=== PATIENT | female | born 1950 | race Caucasian/White ===

== ENCOUNTER → 2016-11-23 | Outpatient (CLI) | payer MEDICARE ==
--- NOTE | 2016-11-24 10:32 | ECHOF ---
Referral Reason:C50.611 Breast CA Z01.818 Pre Chemo Exposure MEASUREMENTS -------- HEIGHT: 162.6 cm WEIGHT: 76.7 kg BP: 127/65 RVIDd: 2.7 cm (< 3.3) IVSd: 1.0 cm (0.6 - 1.1) LVIDd: 4.5 cm (3.9 - 5.3) LVPWd: 0.9 cm (0.6 - 1.1) IVSs: 1.5 cm LVIDs: 3.0 cm LVPWs: 1.3 cm LA Diam: 2.7 cm (2.7 - 3.8) LAESV Index (A-L): 13.75 ml/m Ao Diam: 3.1 cm (2.0 - 3.7) AV Cusp: 2.0 cm (1.5 - 2.6) MV EXCURSION: 14.273 mm (> 18.000) MV EF SLOPE: 21 mm/s (70 - 150) EPSS: 1.2 cm MV E Mayur: 0.64 m/s MV DecT: 217 ms MV A Mayur: 0.87 m/s MV E/A Ratio: 0.74 RAP: 5.00 mmHg RVSP: 22.84 mmHg FINDINGS -------- Sinus rhythm. This was a technically good study. The left ventricular size is normal. Left ventricular wall thickness is normal. Overall left ventricular systolic function is normal with, an EF between 60 - 65 %. The right ventricle is normal in size and function. The left atrium is normal in size. Normal LA size by volume 22+/-6 ml/m2. The right atrium is normal in size. The aortic valve is trileaflet and appears structurally normal. Mild mitral annular calcification present. Trace tricuspid regurgitation present. Right ventricular systolic pressure is normal at < 35 mmHg. Trace/mild (physiologic) pulmonic regurgitation. The aortic root size is normal. The inferior vena cava is mildly dilated. There is no pericardial effusion. CONCLUSIONS -------- 1. Sinus rhythm. 2. Mild mitral annular calcification present. 3. Trace tricuspid regurgitation present. 4. Right ventricular systolic pressure is normal at < 35 mmHg. 5. Trace/mild (physiologic) pulmonic regurgitation. 6. The aortic root size is normal. 7. The inferior vena cava is mildly dilated. 8. There is no pericardial effusion. 9. This was a technically good study. 10. The left ventricular size is normal. 11. Left ventricular wall thickness is normal. 12. Overall left ventricular systolic function is normal with, an EF between 60 - 65 %. 13. The right ventricle is normal in size and function. 14. Normal LA size by volume 22+/-6 ml/m2. 15. The right atrium is normal in size. 16. The aortic valve is trileaflet and appears structurally normal. SAFEMAKER: Mariam Thomas RDCS
== END | disposition home or self-care (01) ==
LOC: RADECHMAIN 12:37
PROVIDERS: ATTEND Internal Medicine Hematology & Oncology
DX: Z01.818 Encounter for other preprocedural examination (principal); C50.919 Malignant neoplasm of unspecified site of unspecified female breast; I08.1 Rheumatic disorders of both mitral and tricuspid valves
CPT/HCPCS: 93306

== ENCOUNTER → 2017-02-19 | Outpatient (CLI) | payer MEDICARE ==
--- NOTE | 2017-02-22 10:20 | PE ---
Nuclear medicine PET/CT HISTORY: Breast carcinoma Patient received 13.6 mCi F-18 FDG intravenously and delayed scanning performed from the skull base t hrough the mid thighs. Localization and attenuation correction CT scan was performed. Correlation to prior nuclear medicine PET/CT August Neck and chest: There is no evident adenopathy. Port-A-Cath is noted incidentally by the left jugular approach. Bilateral breast prostheses are present. Coronary artery calcifications are present. There is a right upper lobe lung mass present measuring approximately 3.1 cm in greatest dimension which i s grown in the interval from approximately 2.9 cm. SUV is 5.9 up from 4.7. An additional nodular area somewhat more inferiorly in the right upper lobe measures approximately 2 cm in greatest anterior to posterior dimension which is also increased in size, SUV only 2.7 up from 2.2. There is some nodular ity again seen in the superior segment of the right lower lobe which shows a similar appearance. No p leural or pericardial effusion. The heart is enlarged. Abdomen pelvis: Right adrenal mass shows low attenuation as on prior exam. No retroperitoneal adenopa thy or suspicious hypermetabolic uptake. Osseous structures are stable. IMPRESSION: Interval growth of right upper lobe lung masses.
== END | disposition home or self-care (01) ==
LOC: RADPETMAIN 10:20
PROVIDERS: ATTEND Internal Medicine Hematology & Oncology
DX: C50.919 Malignant neoplasm of unspecified site of unspecified female breast (principal); E11.9 Type 2 diabetes mellitus without complications; Z92.21 Personal history of antineoplastic chemotherapy
CPT/HCPCS: 78815; A9552

== ENCOUNTER → 2017-03-25 | Outpatient (CLI) | payer MEDICARE ==
--- NOTE | 2017-03-26 08:16 | ECHOF ---
Referral Reason:C50.611 Breast Cancer MEASUREMENTS -------- HEIGHT: 162.6 cm WEIGHT: 75.7 kg BP: 134/86 RVIDd: 3.3 cm (< 3.3) IVSd: 1.0 cm (0.6 - 1.1) LVIDd: 4.9 cm (3.9 - 5.3) LVPWd: 0.9 cm (0.6 - 1.1) IVSs: 1.5 cm LVIDs: 3.4 cm LVPWs: 1.4 cm Ao Diam: 3.4 cm (2.0 - 3.7) AV Cusp: 1.7 cm (1.5 - 2.6) LA Diam: 2.5 cm (2.7 - 3.8) MV EXCURSION: 14.881 mm (> 18.000) MV EF SLOPE: 96 mm/s (70 - 150) EPSS: 0.9 cm RAP: 5.00 mmHg RVSP: 19.02 mmHg FINDINGS -------- Sinus rhythm. This was a technically difficult study with suboptimal views. Pt. Has Breast inplants Overall left ventricular systolic function is normal with, an EF between 55 - 60 %. The right ventricle is normal in size and function. The left atrium is normal in size. The right atrium is normal in size. The aortic valve is trileaflet, and appears structurally normal. No aortic stenosis or regurgitation. The mitral valve leaflets are mildly thickened. No mitral regurgitation. Trace tricuspid regurgitation present. There is no evidence of pulmonary hypertension. The right ventricular systolic pressure, as measured by Doppler, is 19.02mmHg. Trace/mild (physiologic) pulmonic regurgitation. The aortic root size is normal. The inferior vena cava is mildly dilated. The pericardium is normal. There is no pericardial effusion. CONCLUSIONS -------- 1. Sinus rhythm. 2. There is no evidence of pulmonary hypertension. 3. The right ventricular systolic pressure, as measured by Doppler, is 19.02mmHg. 4. Trace/mild (physiologic) pulmonic regurgitation. 5. The aortic root size is normal. 6. The inferior vena cava is mildly dilated. 7. There is no pericardial effusion. 8. This was a technically difficult study with suboptimal views. 9. Pt. Has Breast inplants and double radical mastectomy. 10. Overall left ventricular systolic function is normal with, an EF between 55 - 60 %. 11. The left atrium is normal in size. 12. The aortic valve is trileaflet, and appears structurally normal. No aortic stenosis or regurgitation. 13. The mitral valve leaflets are mildly thickened. 14. No mitral regurgitation. 15. Trace tricuspid regurgitation present. FUR DESIGNER: Ulises Hodges RDCS
== END ==
LOC: RADECHMAIN 16:21
PROVIDERS: ATTEND Internal Medicine Hematology & Oncology
DX: I05.8 Other rheumatic mitral valve diseases (principal); C50.919 Malignant neoplasm of unspecified site of unspecified female breast; Z88.0 Allergy status to penicillin; Z88.2 Allergy status to sulfonamides
CPT/HCPCS: 93306

== ENCOUNTER → 2017-05-28 | Outpatient (CLI) | payer MEDICARE ==
--- NOTE | 2017-05-30 14:05 | PE ---
Nuclear medicine PET/CT HISTORY: C 50.611, C 50.911, cancer right breast and axilla Patient received 9 mCi F-18 FDG intravenously in delayed scanning performed from the skull base to th e mid thighs. Localization and attenuation correction CT scan was performed and correlated to prior n [facility] PET/CT 02/19/2017 Neck and chest: The right upper lobe soft tissue mass now measures approximately 3.6 cm increased fro m 3.3 cm. Hypermetabolic uptake is again noted. SUV value is 6.8. Nodular uptake in the right lower l obe shows a similar appearance, SUV 2.5. Lateral aspect of the right upper lobe also shows a similar appearance, SUV 2. No pleural or pericardial effusion. No evident mediastinal or axillary uptake. Pat ient is post bilateral breast prostheses as on prior exam. Abdomen pelvis: Uptake within the bowel is felt likely to be physiologic. No evident liver mass retro peritoneal adenopathy. Osseous structures are stable. IMPRESSION: Slight interval growth of patient's right upper lobe lung mass is suspected. Suspicious h ypermetabolic uptake is again seen within the right lung as described.
== END | disposition home or self-care (01) ==
LOC: RADPETMAIN 11:27
PROVIDERS: ATTEND Internal Medicine Hematology & Oncology
DX: C50.611 Malignant neoplasm of axillary tail of right female breast (principal); C50.911 Malignant neoplasm of unspecified site of right female breast
CPT/HCPCS: 78815; A9552

== ENCOUNTER → 2017-06-27 | Outpatient (CLI) | payer MEDICARE ==
--- NOTE | 2017-06-28 10:11 | ECHOF ---
[facility].611 [facility]AS[facility] -------- HEIGHT: 162.6 cm WEIGHT: 72.6 kg BP: 117/60 RVIDd: 3.1 cm (< 3.3) IVSd: 1.1 cm (0.6 - 1.1) LVIDd: 4.0 cm (3.9 - 5.3) LVPWd: 1.1 cm (0.6 - 1.1) IVSs: 1.5 cm LVIDs: 3.2 cm LVPWs: 1.8 cm LA Diam: 3.3 cm (2.7 - 3.8) Ao Diam: 3.3 cm (2.0 - 3.7) AV Cusp: 1.9 cm (1.5 - 2.6) MV EXCURSION: 19.197 mm (> 18.000) MV EF SLOPE: 68 mm/s (70 - 150) EPSS: 0.5 cm RAP: 5.00 mmHg RVSP: 21.00 mmHg FINDINGS -------- Sinus rhythm. This was a technically adequate study. Pt. Has Breast inplants The left ventricular size is normal. There is borderline concentric left ventricular hypertrophy. Overall left ventricular systolic function is normal with, an EF between 55 - 60 %. The right ventricle is normal in size. The left atrium is normal in size. The right atrium is normal in size. The aortic valve is trileaflet and appears structurally normal. The mitral valve is normal. Mild tricuspid regurgitation present. Right ventricular systolic pressure is normal at < 35 mmHg. Trace/mild (physiologic) pulmonic regurgitation. The aortic root size is normal. The inferior vena cava is mildly dilated. There is no pericardial effusion. CONCLUSIONS -------- 1. Sinus rhythm. 2. The aortic valve is trileaflet and appears structurally normal. 3. The mitral valve is normal. 4. Mild tricuspid regurgitation present. 5. Right ventricular systolic pressure is normal at < 35 mmHg. 6. Trace/mild (physiologic) pulmonic regurgitation. 7. The aortic root size is normal. 8. The inferior vena cava is mildly dilated. 9. There is no pericardial effusion. 10. This was a technically adequate study. 11. Pt. Has Breast inplants 12. The left ventricular size is normal. 13. There is borderline concentric left ventricular hypertrophy. 14. Overall left ventricular systolic function is normal with, an EF between 55 - 60 %. 15. The right ventricle is normal in size. 16. The left atrium is normal in size. 17. The right atrium is normal in size. EXECUTIVE ACCOUNT MANAGER: Mariam Thomas RDCS
== END | disposition home or self-care (01) ==
LOC: RADECHMAIN 14:58
PROVIDERS: ATTEND Internal Medicine Hematology & Oncology
DX: Z01.810 Encounter for preprocedural cardiovascular examination (principal); I07.1 Rheumatic tricuspid insufficiency; C50.611 Malignant neoplasm of axillary tail of right female breast; Z98.82 Breast implant status
CPT/HCPCS: 93306

== ENCOUNTER 2017-10-24 12:19 | Emergency (ER) | payer MEDICARE ==
[2017-10-24] MEDS ORDERED: SODIUM CHLORIDE 0.9% 1,000 ML IV ONE ×2 (13:49)
--- NOTE | 2017-10-24 13:58 | ED ---
Fall HPI - General Chief Complaint: Fall Stated Complaint: Fall/Dizziness Time Seen by Provider: 10/24/17 13:40 Source: patient Mode of arrival: wheelchair - History of Present Illness Initial Comments: This 59-year-old white female presents pulling of a fall. She fell yesterday. She was going down the steps. She apparently missed the last step, fell, and hit her left occiput. She is unsure if she passed out at that time. She states that she was doing well afterwards. She then woke up this morning and stood up, felt dizzy, and fell again. She thinks she hit her head again. She does not think that she lost consciousness this time. She fell on her left side and states that her left side feels sore. She denies any other injuries. She states that she has been eating and drinking fairly well and does not feel dehydrated. She currently is on oral chemotherapy for breast cancer with lung metastases. She did take an aspirin this morning but denies taking any other blood thinners. She does complain of a slight dizziness which she describes more of a lightheadedness or unsteadiness but denies any spinning or vertigo type of sensations. She denies any other complaints or modifying factors. - Related Data Home Medications Medication Instructions Recorded Confirmed Aspirin 81 mg PO DAILY 09/10/14 10/24/17 Calcium Carbonate/Vitamin D3 1 tab PO DAILY 09/10/14 10/24/17 [Calcium 600-Vit D3 400 Tablet] Insulin Aspart [NovoLOG Flexpen] 5 unit SQ AC-BRKFST 09/10/14 10/24/17 Insulin Aspart [NovoLOG Flexpen] 8 unit SQ AC-LUNCH 09/10/14 10/24/17 Insulin Aspart [NovoLOG Flexpen] 8 unit SQ AC-SUPPER 09/10/14 10/24/17 Levothyroxine Sodium [Synthroid] 100 mcg PO DAILY 09/10/14 10/24/17 Multivitamins, Thera [Multivitamin 1 tab PO DAILY 09/10/14 10/24/17 (formulary)] [place]-3S/Dha/Epa/Fish Oil [[place]-3 1 cap PO DAILY 09/10/14 10/24/17 Fish Oil 1,000 mg Sfgl] Omeprazole [PriLOSEC] 20 mg PO DAILY 09/10/14 10/24/17 amLODIPine [Norvasc] 10 mg PO DAILY 09/10/14 10/24/17 Biotin Forte 1 tab PO DAILY 10/24/17 10/24/17 Canagliflozin [Invokana] 100 mg PO DAILY 10/24/17 10/24/17 Capecitabine [Xeloda] 1,000 mg PO DIRECTED 10/24/17 10/24/17 Cholecalciferol [Vitamin D3] 1,000 unit PO DAILY 10/24/17 10/24/17 Ferrous Gluconate 324 mg PO DAILY 10/24/17 10/24/17 Insulin Glargine,Hum.rec.anlog 22 unit SQ HS 10/24/17 10/24/17 [Lantus Solostar] Loperamide [Imodium] 2 mg PO QID PRN 10/24/17 10/24/17 Naproxen Sodium [Aleve] 440 - 660 mg PO DAILY PRN 10/24/17 10/24/17 Prochlorperazine [Compazine] 10 mg PO Q6H PRN 10/24/17 10/24/17 Sertraline [Zoloft] 100 mg PO DAILY 10/24/17 10/24/17 metFORMIN HCL [Glucophage] 500 mg PO BID 10/24/17 10/24/17 Allergies Allergy/AdvReac Type Severity Reaction Status Date / Time adhesive Allergy Itching Verified 10/24/17 14:06 Penicillins Allergy Rash/Hives Verified 10/24/17 14:06 Sulfa (Sulfonamide Allergy Rash/Hives Verified 10/24/17 14:06 Antibiotics) guaifenesin AdvReac Nausea & Verified 10/24/17 14:06 Vomiting Review of Systems ROS Statement: Those systems with pertinent positive or pertinent negative responses have been documented in the HPI. ROS Other: All systems not noted in ROS Statement are negative. Past Medical History Past Medical History: Cancer, Diabetes Mellitus, Eye Disorder, GERD/Reflux, Hyperlipidemia, Hypertension, Osteoarthritis (OA), Thyroid Disorder Additional Past Medical History / Comment(s): bilateral breast cancer, depression, cervical spine degenerative disc disease, CURRENTLY ON CHEMOTHERAPY R/T "SPOTS ON LUNGS" Q 3 WEEKS, BEGINNING CATARACTS History of Any Multi-Drug Resistant Organisms: None Reported Past Surgical History: Section, Cholecystectomy, Orthopedic Surgery Additional Past Surgical History / Comment(s): Bilateral mastectomies 2005 and 2011, left shoulder arthroscopy,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 PORT A CATHX2 CURRENTLY LEFT CHEST, BX OF LYMPH NODES Past Anesthesia/Blood Transfusion Reactions: Motion Sickness, Postoperative Nausea & Vomiting (PONV) Past Psychological History: Depression Smoking Status: Never smoker Past Alcohol Use History: None Reported Past Drug Use History: None Reported - Past Family History Father Family Medical History: Cancer, Hypertension, Myocardial Infarction ([place]) Additional Family Medical History / Comment(s): AT AGE 85 Mother Family Medical History: Neurologic Disorder Additional Family Medical History / Comment(s): AT AGE 80 ANUERYSM Sister(s) Family Medical History: Cancer General Exam - General Exam Comments Initial Comments: GENERAL: The patient is well nourished and well hydrated. VITAL SIGNS: Heart rate, blood pressure, respiratory rate reviewed as recorded in nurse's notes. EYES: Pupils are round and reactive. Extraocular movements are intact. No conjunctival / lid redness or swelling. ENT: No external evidence of injury, swelling, or ecchymosis. Airway is patent. Throat is clear. There is some slight tenderness to the left occipital area. NECK: There is minimal tenderness noted to the left paraspinal musculature. No swelling or evidence of injury. No subcutaneous emphysema. Trachea is midline. No thyroid mass. HEART: Regular rate and rhythm. Good peripheral pulses. LUNGS/CHEST: Breath sounds clear and equal bilaterally. No rales, rhonchi, or wheezes. No ecchymosis, subcutaneous emphysema, or tenderness. ABDOMEN: Abdomen soft without tenderness. No palpable masses or organomegaly. No peritoneal signs. No abdominal wall swelling or ecchymosis. EXTREMITIES: No extremity tenderness. Normal muscle tone and function. No thoracolumbar tenderness. NEUROLOGIC: Sensation is grossly intact. Cranial nerve exam reveals face is symmetrical, tongue is midline, speech is clear. SKIN: No abrasions or ecchymosis is noted. No induration or masses noted. PSYCHIATRIC: Alert and oriented. Appropriate behavior and judgment. Limitations: no limitations Course Vital Signs 10/24/17 10/24/17 12:22 15:07 Temperature 98.1 F Pulse Rate 94 Pulse Rate [ 87 Sitting] Pulse Rate [ 94 Standing] Pulse Rate [ 84 Supine] Respiratory 20 Rate Blood Pressure 159/72 Blood Pressure 159/85 [Sitting] Blood Pressure 158/93 [Standing] Blood Pressure 146/75 [Supine] O2 Sat by Pulse 99 Oximetry Medical Decision Making - Medical Decision Making The patient was seen and examined. All diagnostics were reviewed. The patient did receive IV fluid hydration. Orthostatics are ordered and are normal. The laboratories unremarkable. The patient did have a computed tomography scan of the neck which showed degenerative changes but no fractures. The computed tomography scan of the brain does not show any acute process but does show some vasogenic edema in one area which is potentially worrisome for metastases among other things. The patient also had an EKG which shows a normal sinus rhythm at a rate of 79. There is no acute ST-T wave changes identified. The AR intervals 152, QRS duration is 88, and the QTc interval is 456. The patient was informed of this abnormal brain lesion. She states that she has never been informed previously of any brain metastases. It is felt that this certainly would be in the differential diagnosis at this time. The case is discussed with Dr. Barber for Dr. Montez and she feels as though she is stable for discharge home with close follow-up. The patient has an appointment with Dr. Montez tomorrow. She likely can have the MRI set up through Dr. Montez's office tomorrow. Dr. Barber also wants her to follow-up with her oncologist within the week and patient is informed of this as well. Fall precaution instructions were discussed and ultimately detail with patient and . Adequate hydration was also discussed. It is felt as though she is stable for discharge and leaves in no distress. - Lab Data Result diagrams: 10/24/17 14:23 10/24/17 14:23 Lab Results 10/24/17 10/24/17 10/24/17 Range/Units 14:23 14:23 14:23 WBC 7.7 (3.8-10.6) k/uL RBC 3.99 (3.80-5.40) m/uL Hgb 12.1 (11.4-16.0) gm/dL Hct 38.6 (34.0-46.0) % MCV 96.7 (80.0-100.0) fL MCH 30.4 (25.0-35.0) pg MCHC 31.4 (31.0-37.0) g/dL RDW 21.9 H (11.5-15.5) % Plt Count 133 L (150-450) k/uL Neutrophils % 84 % Lymphocytes % 8 % Monocytes % 6 % Eosinophils % 0 % Basophils % 0 % Neutrophils # 6.4 (1.3-7.7) k/uL Lymphocytes # 0.6 L (1.0-4.8) k/uL Monocytes # 0.5 (0-1.0) k/uL Eosinophils # 0.0 (0-0.7) k/uL Basophils # 0.0 (0-0.2) k/uL Hypochromasia Slight Anisocytosis Moderate Macrocytosis Moderate PT 9.5 (9.0-12.0) sec INR 1.0 (<1.2) APTT 22.0 (22.0-30.0) sec Sodium 140 (137-145) mmol/L Potassium 4.1 (3.5-5.1) mmol/L Chloride 105 (98-107) mmol/L Carbon Dioxide 23 (22-30) mmol/L Anion Gap 12 mmol/L BUN 13 (7-17) mg/dL Creatinine 0.55 (0.52-1.04) mg/dL Est GFR (MDRD) Af Amer >60 (>60 ml/min/1.73 sqM) Est GFR (MDRD) Non-Af >60 (>60 ml/min/1.73 sqM) Glucose 139 H (74-99) mg/dL POC Glucose (mg/dL) (75-99) mg/dL POC Glu Compressor Technician ID Calcium 9.7 (8.4-10.2) mg/dL Total Bilirubin 0.8 (0.2-1.3) mg/dL AST 40 H (14-36) U/L ALT 43 (9-52) U/L Alkaline Phosphatase 71 (38-126) U/L Total Protein 6.7 (6.3-8.2) g/dL Albumin 4.2 (3.5-5.0) g/dL Urine Color Urine Appearance (Clear) Urine pH (5.0-8.0) Ur Specific Harper (1.001-1.035) Urine Protein (Negative) Urine Glucose (UA) (Negative) Urine Ketones (Negative) Urine Blood (Negative) Urine Nitrite (Negative) Urine Bilirubin (Negative) Urine Urobilinogen (<2.0) mg/dL Ur Leukocyte Esterase (Negative) 10/24/17 10/24/17 Range/Units 14:23 14:28 WBC (3.8-10.6) k/uL RBC (3.80-5.40) m/uL Hgb (11.4-16.0) gm/dL Hct (34.0-46.0) % MCV (80.0-100.0) fL MCH (25.0-35.0) pg MCHC (31.0-37.0) g/dL RDW (11.5-15.5) % Plt Count (150-450) k/uL Neutrophils % % Lymphocytes % % Monocytes % % Eosinophils % % Basophils % % Neutrophils # (1.3-7.7) k/uL Lymphocytes # (1.0-4.8) k/uL Monocytes # (0-1.0) k/uL Eosinophils # (0-0.7) k/uL Basophils # (0-0.2) k/uL Hypochromasia Anisocytosis Macrocytosis PT (9.0-12.0) sec INR (<1.2) APTT (22.0-30.0) sec Sodium (137-145) mmol/L Potassium (3.5-5.1) mmol/L Chloride (98-107) mmol/L Carbon Dioxide (22-30) mmol/L Anion Gap mmol/L BUN (7-17) mg/dL Creatinine (0.52-1.04) mg/dL Est GFR (MDRD) Af Amer (>60 ml/min/1.73 sqM) Est GFR (MDRD) Non-Af (>60 ml/min/1.73 sqM) Glucose (74-99) mg/dL POC Glucose (mg/dL) 130 H (75-99) mg/dL POC Glu Compressor Technician ID Petitpren, Gretel Calcium (8.4-10.2) mg/dL Total Bilirubin (0.2-1.3) mg/dL AST (14-36) U/L ALT (9-52) U/L Alkaline Phosphatase (38-126) U/L Total Protein (6.3-8.2) g/dL Albumin (3.5-5.0) g/dL Urine Color Light Yellow Urine Appearance Clear (Clear) Urine pH 7.5 (5.0-8.0) Ur Specific Harper 1.005 (1.001-1.035) Urine Protein Negative (Negative) Urine Glucose (UA) 4+ H (Negative) Urine Ketones Trace H (Negative) Urine Blood Negative (Negative) Urine Nitrite Negative (Negative) Urine Bilirubin Negative (Negative) Urine Urobilinogen <2.0 (<2.0) mg/dL Ur Leukocyte Esterase Negative (Negative) Disposition Clinical Impression: Fall, Head injury, Hypertension, Brain lesion, Dizziness, Breast cancer, Lung metastases Disposition: HOME SELF-CARE Condition: Fair Instructions: Fall Prevention for Older Adults (ED), Head Injury (ED), Hypertension (ED), Dizziness (ED) Referrals: Clover Montez MD [Primary Care Provider] - 10/25/17 Time of Disposition: 16:05
[2017-10-24 14:34] LABS: Glucose,Whole Blood 130 mg/dL (75-99)
[2017-10-24 14:44] LABS: Appearance,Urine Clear (Clear); Bilirubin,Urine Negative (Negative); Blood,Urine Negative (Negative); Color,Urine Light Yellow; Glucose,Urine (UA) 4+ (Negative); Ketones,Urine Trace (Negative); Leukocyte Esterase,Urine Negative (Negative); Nitrite,Urine Negative (Negative); PH, Urine 7.5 (5.0-8.0); Protein,Urine Negative (Negative); Specific Gravity,Urine 1.005 (1.001-1.035); Urobilinogen,Urine <2.0 mg/dL (<2.0)
[2017-10-24 14:45] LABS: Anisocytosis Moderate; Basophils % (A) 0 %; Eosinophils % (A) 0 %; HCT 38.6 % (34.0-46.0); HGB 12.1 gm/dL (11.4-16.0); Hypochromasia Slight; Lymphocytes # (A) 0.6 k/uL (1.0-4.8); Lymphocytes % (A) 8 %; MCH 30.4 pg (25.0-35.0); MCHC 31.4 g/dL (31.0-37.0); MCV 96.7 fL (80.0-100.0); Macrocytosis Moderate; Mean Platelet Volume 7.4; Monocytes # (A) 0.5 k/uL (0-1.0); Monocytes % (A) 6 %; Neutrophils # (A) 6.4 k/uL (1.3-7.7); Neutrophils % (A) 84 %; Platelet Count 133 k/uL (150-450); RBC 3.99 m/uL (3.80-5.40); RDW 21.9 % (11.5-15.5); WBC 7.7 k/uL (3.8-10.6)
[2017-10-24 14:48] LABS: Prothrombin Time 9.5 sec (9.0-12.0)
[2017-10-24 14:49] LABS: ALT 43 U/L (9-52); AST 40 U/L (14-36); Albumin 4.2 g/dL (3.5-5.0); Alkaline Phosphatase 71 U/L (38-126); Anion Gap 12 mmol/L; Blood Urea Nitrogen 13 mg/dL (7-17); Calcium 9.7 mg/dL (8.4-10.2); Carbon Dioxide 23 mmol/L (22-30); Chloride 105 mmol/L (98-107); Glucose 139 mg/dL (74-99); Potassium 4.1 mmol/L (3.5-5.1); Sodium 140 mmol/L (137-145); Total Bilirubin 0.8 mg/dL (0.2-1.3); Total Protein 6.7 g/dL (6.3-8.2)
--- NOTE | 2017-10-24 15:07 | CT ---
EXAMINATION TYPE: CT brain brigitteine rojas con DATE OF EXAM: 10/24/2017 COMPARISON: NONE HISTORY: Fall with dizziness. CT DLP: 1641 mGycm Automated exposure control for dose reduction was used. TECHNIQUE: CT scan of the head and cervical spine are performed without contrast. FINDINGS: There is no acute intracranial hemorrhage, mass effect, or midline shift identified. Mild generalized degenerative change. Faint area of low attenuation within the cerebellum may been the ba sis of previous ischemia. Recommend follow-up MRI given the patient's history of malignancy as vasoge cydney edema and occult mass not excluded. Cervical spine is visualized in its entirety from C1 through upper thoracic levels and demonstrates s atisfactory alignment without evidence of acute fracture or dislocation. Prevertebral soft tissue ap pears within normal limits. The C1-C2 articulation is unremarkable. Apical pleural thickening or ma ss in the right upper lobe noted. Multilevel degenerative disc disease with severe changes at C5-6 an d C6-C7. Multilevel facet arthropathy. Canal stenosis at C5-C6 or C6-C7 is suggested. Catheter within the left-sided venous system incidentally noted IMPRESSION: 1. There is no acute fracture or dislocation evident in the cervical spine. Multilevel severe degener ative disc disease with canal stenosis C5-6 and C6-C7. 2. No acute intracranial hemorrhage, mass effect, or midline shift is seen. Abnormal attenuation in t he cerebellum greater on the left may represent remote ischemia however, vasogenic edema and occult n eoplasm in the differential diagnosis recommend follow-up MRI to exclude metastases.
[2017-10-24 16:19] VITALS: BP 126/59; PULSE 83; RESP 18; TEMP 98.2
[2017-10-24 20:34] LABS: Hemoglobin A1C 6.6 % (4.0-6.0)
== END 2017-10-24 16:19 | disposition home or self-care (01) ==
LOC: EC 12:19
DX: S09.90XA Unspecified injury of head, initial encounter (principal); I10 Essential (primary) hypertension; R42 Dizziness and giddiness; C50.911 Malignant neoplasm of unspecified site of right female breast; C50.912 Malignant neoplasm of unspecified site of left female breast; G93.9 Disorder of brain, unspecified; C78.00 Secondary malignant neoplasm of unspecified lung; E11.9 Type 2 diabetes mellitus without complications; K21.9 Gastro-esophageal reflux disease without esophagitis; E78.5 Hyperlipidemia, unspecified; E07.9 Disorder of thyroid, unspecified; F32.9 Major depressive disorder, single episode, unspecified; Z98.890 Other specified postprocedural states; Z79.4 Long term (current) use of insulin; Z79.82 Long term (current) use of aspirin; Z79.899 Other long term (current) drug therapy; Z88.0 Allergy status to penicillin; Z88.2 Allergy status to sulfonamides; Z88.8 Allergy status to other drugs, medicaments and biological substances; Z91.048 Other nonmedicinal substance allergy status; W10.9XXA Fall (on) (from) unspecified stairs and steps, initial encounter
CPT/HCPCS: 36415; 70450; 72125; 80053; 81003; 83036; 85025; 85610; 85730; 93005; 96360; 96361; 99284

== ENCOUNTER → 2017-11-02 | Outpatient (CLI) | payer MEDICARE ==
--- NOTE | 2017-11-02 13:53 | MR ---
EXAMINATION TYPE: MR brain wo/w con DATE OF EXAM: 11/02/2017 COMPARISON: CT brain dated 10/24/2017 and PET/CT dated 05/28/2017 HISTORY: Breast ca, Chemo exposure, fell hit head TECHNIQUE: Multiplanar, multisequence images of the brain and brainstem is performed without and with IV contras t, utilizing 7.5 mL intravenous Gadavist . FINDINGS: Diffusion weighted images demonstrate no evidence of a recent infarct or other diffusion ab normality. There is a T2/IR predominantly isointense and T1 hypointense intra-axial medial left cerebellar hemis phere mass that has extended into the cerebellar vermis and crosses midline into the right hemisphere creating left greater than right vasogenic edema. This mass enhances heterogeneously with more centr ally avid enhancement measuring 2.1 x 1.9 x 2.0 cm on postcontrast T1 fat sat axial image 9 and sagit rashmi image 68. Other scattered foci of T2/FLAIR hyperintensity throughout the periventricular and subcortical white matter demonstrate no evidence of enhancement and are most compatible with sequela of microangiopathy . Leptomeningeal enhancement is smooth and regular. There is no extra-axial fluid collection. The ve ntricular system and cisternal spaces are normal in size and appearance. The brain volume is age oscar ropriate. The craniocervical junction appears within normal limits. The dural venous sinuses appear patent. Th e visualized sinuses are clear and the globes are intact. IMPRESSION: 1. Heterogeneously enhancing 2.1 cm left cerebellar intra-axial mass with surrounding vasogenic edema . Metastasis is a primary consideration in this patient with history of metastatic breast carcinoma, worsening within the right upper lobe on the PET/CT of 05/28/2017. 2. Mild burden nonspecific white matter change, likely on the basis of chronic microangiopathy.
--- NOTE | 2017-11-03 10:14 | ECHOF ---
Referral Reason:C50.611 Breast ca, Z01.818 Chemo exposure MEASUREMENTS -------- HEIGHT: 163.8 cm WEIGHT: 76.7 kg BP: 146/70 RVIDd: 3.1 cm (< 3.3) IVSd: 1.1 cm (0.6 - 1.1) LVIDd: 4.9 cm (3.9 - 5.3) LVPWd: 0.9 cm (0.6 - 1.1) IVSs: 1.5 cm LVIDs: 3.0 cm LVPWs: 1.5 cm LA Diam: 3.3 cm (2.7 - 3.8) LAESV Index (A-L): 29.50 ml/m Ao Diam: 3.0 cm (2.0 - 3.7) AV Cusp: 2.0 cm (1.5 - 2.6) EPSS: 1.4 cm MV E Mayur: 0.73 m/s MV DecT: 205 ms MV A Mayur: 1.13 m/s MV E/A Ratio: 0.64 RAP: 5.00 mmHg RVSP: 32.32 mmHg MV EF SLOPE: 93.21 mm/s (70 - 150) MV EXCURSION: 1.82 cm (> 18.000) FINDINGS -------- Sinus rhythm. This was a technically good study. The left ventricular size is normal. There is borderline concentric left ventricular hypertrophy. Overall left ventricular systolic function is normal with, an EF between 55 - 60 %. The right ventricle is normal in size. LA is midly dilated 29-33ml/m2. The right atrium is normal in size. The aortic valve is trileaflet and appears structurally normal. There is trace mitral regurgitation. Mild tricuspid regurgitation present. Right ventricular systolic pressure is normal at < 35 mmHg. Trace/mild (physiologic) pulmonic regurgitation. The aortic root size is normal. The inferior vena cava is mildly dilated. There is no pericardial effusion. CONCLUSIONS -------- 1. Sinus rhythm. 2. This was a technically good study. 3. The left ventricular size is normal. 4. There is borderline concentric left ventricular hypertrophy. 5. Overall left ventricular systolic function is normal with, an EF between 55 - 60 %. 6. The right ventricle is normal in size. 7. LA is midly dilated 29-33ml/m2. 8. The right atrium is normal in size. 9. The aortic valve is trileaflet and appears structurally normal. 10. There is trace mitral regurgitation. 11. Mild tricuspid regurgitation present. 12. Right ventricular systolic pressure is normal at < 35 mmHg. 13. Trace/mild (physiologic) pulmonic regurgitation. 14. The aortic root size is normal. 15. The inferior vena cava is mildly dilated. 16. There is no pericardial effusion. PROFILE GRINDER: EMILY Bowers
== END | disposition home or self-care (01) ==
LOC: RADECHMAIN 11:20
PROVIDERS: ATTEND Internal Medicine Hematology & Oncology
DX: G93.89 Other specified disorders of brain (principal); R60.0 Localized edema; R90.82 White matter disease, unspecified; I08.8 Other rheumatic multiple valve diseases; C50.611 Malignant neoplasm of axillary tail of right female breast; Z01.818 Encounter for other preprocedural examination
CPT/HCPCS: 93306; 70553; A9581

== ENCOUNTER → 2017-11-19 | Outpatient (CLI) | payer MEDICARE ==
--- NOTE | 2017-11-20 16:42 | PE ---
EXAMINATION TYPE: PET CT fusion skull to thigh DATE OF EXAM: 11/19/2017 COMPARISON: NONE Prior PET/CT: 05/28/2017 HISTORY: Breast cancer TECHNIQUE: Following the intravenous administration of 14.4 mCi of F-18 FDG, whole body images are p erformed from the skull base to the midthigh. Images are reviewed on the computer in the coronal, ax ial, and sagittal planes. Reconstructed rotating images are created on independent workstation and r eviewed on the computer. A localization and attenuation correction CT is performed in conjunction w ith the PET scan. DLP: 417.16 mGycm SCAN: Subsequent scan Blood glucose: 125 mg/dL Average Mediastinum SUV: 1.78 Average Liver SUV: 2.55 FINDINGS: NECK: No abnormal uptake THORAX: The large mass in the posterior right apex has elevated SUV of 4.86. Image 67. This measures 3.2 x 2.0 cm. There are couple of smaller daughter masses lateral which have less intense radiotracer accumulation. Maximum SUV value is 2.23. No suspicious mediastinal or axillary uptake. There is some density within the mid posterior right lung field without abnormal uptake. ABDOMEN: No abnormal uptake PELVIS: No abnormal uptake OSSEOUS STRUCTURES: No abnormal uptake LOCALIZATION CT: Hiatal hernia is present. Some coronary artery calcification is present. The ascendi ng thoracic aorta at the level of main pulmonary artery is 4.1 cm. The main pulmonary artery the bifu rcation is 2.9 cm. Right adrenal gland is thickened with a low-density structure measuring 2.0 cm tra nsverse and -4 Hounsfield units. No abnormal uptake is present. There is some increased density in the subcutaneous tissues over the anterior upper pelvis bilaterally. COMPARISON: Smaller area posterior right lung 2.36 previously larger area posterior right lung 3.86 p reviously. Previous larger lung mass measuring 3.4 x 2.1 cm and has diminished slightly from the prio r study. The SUV value has increased from 3.86 to 4.86. The additional posterior daughter masses late ral have diminished from SUV 2.36 to 2.23. The mass size however is increased from 1.3 to 1.7. IMPRESSION: 1. The largest on the posterior left lung mass has diminished in size and SUV discussed above. 2. There are at least 2 adjacent masses to the larger mass. These have increased in size although sli ghtly diminished in SUV value. 3. Posterior right lung nodular densities do not have abnormal increased uptake and appears stable.
== END | disposition home or self-care (01) ==
LOC: RADPETMAIN 11:28
PROVIDERS: ATTEND Internal Medicine Hematology & Oncology
DX: C50.611 Malignant neoplasm of axillary tail of right female breast (principal)
CPT/HCPCS: 78815; A9552

== ENCOUNTER → 2018-01-16 | Outpatient (CLI) | payer MEDICARE ==
--- NOTE | 2018-01-16 22:44 | MR ---
EXAMINATION TYPE: MR brain wo/w con DATE OF EXAM: 01/16/2018 COMPARISON: 11/02/2017 HISTORY: Secondary malignant neoplasm of brain CONTRAST: Performed utilizing 7.5 mL intravenous Gadavist gadolinium contrast. TECHNIQUE: Multiplanar, multiecho imaging on a 3.0 Shanell magnet is performed through the brain. Stud y is performed within 24 hours of arrival to the hospital. The craniovertebral junction is normal. The pituitary is normal. Diffusion-weighted imaging is performed. No abnormal hyperintensity is present to suggest an acute i ntracranial infarct or acute ischemic change. There are multiple punctate hyperintensities scattered to the bilateral centrum semiovale as well as adjacent to the ventricles. Ventricles and sulci are appropriate for the patient age. There is an enhancing mass best visualized on the post contrast T1-weighted images in the posterior m edial left cerebellum. Mild white matter changes are evident in the FLAIR images in this region. This currently measures 1.3 x 1.2 x 1.1 cm. This is significantly diminished in size from 11/02/2017. Prev ious measurements 2.1 x 1.9 x 2.0 cm. IMPRESSIONS: 1. Significantly diminished size of an enhancing lesion within the medial left cerebellum near the mi dline. Vasogenic edema has diminished over the interval. 2. Stable chronic appearing periventricular white matter ischemic type changes
== END | disposition home or self-care (01) ==
LOC: RADMRIMAIN 11:03
PROVIDERS: ATTEND Radiology Radiation Oncology
DX: C79.31 Secondary malignant neoplasm of brain (principal)
CPT/HCPCS: 70553; A9581

== ENCOUNTER → 2018-02-07 | Outpatient (CLI) | payer MEDICARE ==
--- NOTE | 2018-02-08 10:47 | ECHOF ---
Referral Reason:C50.611 Breast ca,Z01.818 prechemo MEASUREMENTS -------- HEIGHT: 162.6 cm WEIGHT: 79.4 kg BP: 119/59 RVIDd: 2.8 cm (< 3.3) IVSd: 1.1 cm (0.6 - 1.1) LVIDd: 3.7 cm (3.9 - 5.3) LVPWd: 1.2 cm (0.6 - 1.1) IVSs: 1.3 cm LVIDs: 2.9 cm LVPWs: 1.6 cm LA Diam: 2.9 cm (2.7 - 3.8) LAESV Index (A-L): 25.92 ml/m Ao Diam: 3.0 cm (2.0 - 3.7) AV Cusp: 2.1 cm (1.5 - 2.6) MV EXCURSION: 14.100 mm (> 18.000) MV EF SLOPE: 72 mm/s (70 - 150) EPSS: 0.5 cm MV E Mayur: 0.86 m/s MV DecT: 184 ms MV A Mayur: 0.99 m/s MV E/A Ratio: 0.87 RAP: 5.00 mmHg RVSP: 30.70 mmHg FINDINGS -------- Sinus rhythm. This was a technically adequate study. The left ventricular size is normal. There is borderline concentric left ventricular hypertrophy. Overall left ventricular systolic function is normal with, an EF between 55 - 60 %. The right ventricle is normal in size. Normal LA size by volume 22+/-6 ml/m2. The right atrium is normal in size. There is mild aortic valve sclerosis. Mild mitral annular calcification present. Mild tricuspid regurgitation present. Right ventricular systolic pressure is normal at < 35 mmHg. Trace/mild (physiologic) pulmonic regurgitation. The aortic root size is normal. Normal inferior vena cava with normal inspiratory collapse consistent with estimated right atrial pre ssure of 5 mmHg. The inferior vena cava is mildly dilated. CONCLUSIONS -------- 1. Sinus rhythm. 2. This was a technically adequate study. 3. The left ventricular size is normal. 4. There is borderline concentric left ventricular hypertrophy. 5. Overall left ventricular systolic function is normal with, an EF between 55 - 60 %. 6. The right ventricle is normal in size. 7. Normal LA size by volume 22+/-6 ml/m2. 8. The right atrium is normal in size. 9. There is mild aortic valve sclerosis. 10. Mild mitral annular calcification present. 11. Mild tricuspid regurgitation present. 12. Right ventricular systolic pressure is normal at < 35 mmHg. 13. Trace/mild (physiologic) pulmonic regurgitation. 14. The aortic root size is normal. 15. Normal inferior vena cava with normal inspiratory collapse consistent with estimated right atrial pressure of 5 mmHg. 16. The inferior vena cava is mildly dilated. TAPE CONTROL SKIN OR SPAR MILL OPERATOR: Ulises Wilkinson RDCS
== END | disposition home or self-care (01) ==
LOC: RADECHMAIN 12:58
PROVIDERS: ATTEND Internal Medicine Hematology & Oncology
DX: I08.3 Combined rheumatic disorders of mitral, aortic and tricuspid valves (principal); C50.611 Malignant neoplasm of axillary tail of right female breast; I99.8 Other disorder of circulatory system; Z01.818 Encounter for other preprocedural examination
CPT/HCPCS: 93306

== ENCOUNTER → 2018-03-17 | Outpatient (CLI) | payer MEDICARE ==
--- NOTE | 2018-03-17 13:14 | MR ---
EXAMINATION TYPE: MR brain wo/w con DATE OF EXAM: 03/17/2018 COMPARISON: Both recent MRI brain January 16, 2018 and older studies HISTORY: Secondary malignant neoplasm of brain, metastatic breast cancer. TECHNIQUE: Multiplanar, multisequence images of the brain and brainstem is performed without and with IV contras t, utilizing 7.5 mL intravenous Gadavist . FINDINGS: Diffusion weighted images demonstrate no evidence of a recent infarct or other diffusion ab normality. There is no worrisome extra-axial fluid collection. The ventricular system and cisternal spaces are normal in size and appearance. The brain volume is age appropriate. There are persistent scattered foci of T2 hyperintensity seen throughout the deep and periventricular white matter. Lesio ns are nonspecific in appearance and distribution but most likely on basis of product of chronic smal l vessel ischemic change in patient of this age. No significant change from prior. Midline structures demonstrate normal morphology. The craniocervical junction appears within normal limits. Post contrast images demonstrate redemonstrate persistent left medial cerebellar enhancing lesion dim inished in size from prior study measuring 10 x 9 mm axial image 23 x 8 mm craniocaudal dimension on sagittal image 38 versus 13 x 11 x 11 mm on most recent prior study. No new suspicious enhancing lesi ons are clearly identified. The dural venous sinuses appear patent. Prominent right-sided arachnoid granulation redemonstrated ax ial image 29. The visualized sinuses are clear and the globes are intact. IMPRESSION: Continued interval positive treatment response in medial left cerebellar lesion. No new l esions are evident.
== END | disposition home or self-care (01) ==
LOC: RADMRIMAIN 12:12
PROVIDERS: ATTEND Radiology Radiation Oncology
DX: C79.31 Secondary malignant neoplasm of brain (principal)
CPT/HCPCS: 70553; A9581

== ENCOUNTER → 2018-05-30 | Outpatient (CLI) | payer MEDICARE ==
--- NOTE | 2018-06-09 13:36 | ECHOF ---
Referral Reason:C50.611 Breast Cancer, Chemo Z01.818 MEASUREMENTS -------- HEIGHT: 165.1 cm WEIGHT: 74.4 kg BP: RVIDd: 3.2 cm (< 3.3) IVSd: 1.1 cm (0.6 - 1.1) LVIDd: 4.8 cm (3.9 - 5.3) LVPWd: 1.1 cm (0.6 - 1.1) IVSs: 1.4 cm LVIDs: 3.4 cm LVPWs: 1.4 cm LAESV Index (A-L): 26.69 ml/m Ao Diam: 3.2 cm (2.0 - 3.7) AV Cusp: 1.9 cm (1.5 - 2.6) LA Diam: 3.1 cm (2.7 - 3.8) MV E Mayur: 0.83 m/s MV DecT: 191 ms MV A Mayur: 1.13 m/s MV E/A Ratio: 0.74 RAP: 10.00 mmHg RVSP: 39.35 mmHg FINDINGS -------- Sinus rhythm. This was a technically adequate study. Pt. Has Breast inplants The left ventricular size is normal. There is borderline concentric left ventricular hypertrophy. Overall left ventricular systolic function is low-normal with, an EF between 50 - 55 %. The right ventricle is normal in size and function. Normal LA size by volume 22+/-6 ml/m2. RA appears enlarged. Aortic valve is trileaflet and is mildly thickened. There is no evidence of aortic regurgitation. There is no evidence of aortic stenosis. The mitral valve leaflets are mildly thickened. There is trace to mild mitral regurgitation. Mild tricuspid regurgitation present. There is mild pulmonary hypertension. The right ventricular systolic pressure, as measured by Doppler, is 39.35mmHg. The pulmonic valve was not well visualized. The aortic root size is normal. The IVC is dilated with normal collapse. There is no pericardial effusion. CONCLUSIONS -------- 1. Sinus rhythm. 2. This was a technically adequate study. 3. Pt. Has Breast inplants 4. The left ventricular size is normal. 5. There is borderline concentric left ventricular hypertrophy. 6. Overall left ventricular systolic function is low-normal with, an EF between 50 - 55 %. 7. Normal LA size by volume 22+/-6 ml/m2. 8. RA appears enlarged. 9. Aortic valve is trileaflet and is mildly thickened. 10. The mitral valve leaflets are mildly thickened. 11. There is trace to mild mitral regurgitation. 12. Mild tricuspid regurgitation present. 13. There is mild pulmonary hypertension. 14. The right ventricular systolic pressure, as measured by Doppler, is 39.35mmHg. 15. The aortic root size is normal. 16. The IVC is dilated with normal collapse. 17. There is no pericardial effusion. ACCELERATOR TECHNICIAN: Ulises Wilkinson RDCS
== END | disposition home or self-care (01) ==
LOC: RADECHMAIN 15:04
PROVIDERS: ATTEND Internal Medicine Hematology & Oncology
DX: C50.611 Malignant neoplasm of axillary tail of right female breast (principal); I08.3 Combined rheumatic disorders of mitral, aortic and tricuspid valves; I27.20 Pulmonary hypertension, unspecified
CPT/HCPCS: 93306

== ENCOUNTER → 2018-06-27 | Outpatient (CLI) | payer MEDICARE ==
--- NOTE | 2018-06-27 13:53 | MR ---
EXAMINATION TYPE: MR brain wo/w con DATE OF EXAM: 06/27/2018 COMPARISON: 03/17/2018 HISTORY: Secondary Malignant neoplasm of brain, follow up, occasional dizziness TECHNIQUE: Multiplanar, multisequence images of the brain and brainstem is performed without and with IV contras t, utilizing 7.5 mL intravenous Gadavist . FINDINGS: Diffusion weighted images demonstrate no evidence of a recent infarct or other diffusion ab normality. There is a 0.8 x 0.6 cm enhancing lesion within the cerebellum which previously measured 1.0 x 0.9 cm . There are no new enhancing lesions. Due to technical error only portions of the brain are included on the FLAIR sequence. Scattered focal areas are seen throughout both cerebral hemispheres which are nonspecific but most typical remote mi crovascular ischemia. Midline structures demonstrate normal morphology. The craniocervical junction appears within normal limits. The dural venous sinuses appear patent. IMPRESSION: 1. Cerebellar lesion is slightly reduced in size now measuring 0.8 x 0.6 x 0.8 cm and previously juan r uring 1.0 X 0.9 cm. 2. Mild degenerative and nonspecific white matter changes most typical of remote microvascular ischem ia.
== END ==
LOC: RADMRIMAIN 10:36
PROVIDERS: ATTEND Radiology Radiation Oncology
DX: C79.31 Secondary malignant neoplasm of brain (principal); R90.89 Other abnormal findings on diagnostic imaging of central nervous system
CPT/HCPCS: 82565; 70553; 36415; A9581

== ENCOUNTER → 2018-07-01 | Outpatient (CLI) | payer MEDICARE ==
--- NOTE | 2018-07-03 20:54 | PE ---
EXAMINATION TYPE: PET CT fusion skull to thigh DATE OF EXAM: 07/01/2018 CLINICAL HISTORY: 68-year-old female restaging bilateral breast cancer diagnosed in 2004 and then 201 2. Last chemotherapy one week ago and last radiation therapy in 2005. Prior surgery in 2004 and 2011. Patient complains of right-sided rib pain for 2 months. TECHNIQUE: Following the intravenous administration of 12.2 mCi of F-18 FDG, whole body images are performed from the skull base to the midthigh. Images are reviewed on the computer in the coronal, a xial, and sagittal planes. Reconstructed rotating images are created on independent workstation and reviewed on the computer. A localization and attenuation correction CT is performed in conjunction with the PET scan. Glucose level: 177 mg/dL CTDI: 4.78 mGy DLP: 425.0 mGy-cm COMPARISON: 11/19/2017 FINDINGS: PET: Interval resolution of previous left paramedian cerebellar hypermetabolism. Physiologic FDG uptake within the neck. There has been interval enlargement of the patient's right upper lobe 2 adjacent masses. This now rep resents a conglomerate mass measuring over 5.4 x 3.2 cm versus 4.7 x 1.8 cm, previously. Maximum SUV 8.0 versus 6.6, previously. Right hilar and right paratracheal lymph nodes are now noted measuring up to 1 cm, max SUV 3.3. Additional suspicious site within the right posterior midlung subpleural region measures 2.0 cm with max SUV 2.9. The patient's moderate right pleural effusion also demonstrates mild FDG uptake, max SUV 1.8. Additional discontinuous areas of increased uptake along the right costophrenic angle and also along the right anterior hepatic serosal surface, max SUV 2.6. In the lingula, axial image 90, there is a 9 mm pulmonary nodule that shows minimal uptake of 0.9. Th is is equivocal. Liver average SUV is 1.6. However, very subtle small focal areas of mildly increased uptake are present such as in the right li goldie lobe max SUV 2.5 and in the mid hepatic dome, max SUV 2.0 A 2.5 cm low-density nodule within the right adrenal gland shows attenuation of 1.4 and no discrete F DG uptake. Findings most compatible with a benign lipid rich adrenal adenoma. The right posterolateral 10th, 11th, 12th ribs show focal mild increased uptake, max SUV 2.5. There m ay be subtle bony irregularity involving these ribs on the CT images. There is variable mild to moderate bowel uptake especially involving left lower quadrant jejunal loop s, maximally 3.3. T11 and L1 superior endplate fractures are unchanged from 11/19/2017 and show no discrete FDG uptake. ATTENUATION CORRECTION CT: Visualized paranasal sinuses are clear. No cervical lymphadenopathy identified. Left anterior chest wall injection port with catheter tip at the upper to mid SVC level. Bilateral b reast reconstructions. Heart is borderline enlarged without pericardial effusion. Coronary vessel calcifications are present and are a marker for coronary artery disease. Ectatic ascending aorta 3.6 cm. Conventional arch vess el branching anatomy. There is prominent atelectasis adjacent to the patient's right pleural effusion . Redemonstrated moderate to large size hiatal hernia. Cholecystectomy clips. Mild bilateral pelvicali ectasis is unchanged. Prominent fluid-filled small bowel loops throughout the abdomen with liquid sto ol in the right side of the colon and moderate stool burden within the remainder of the abdomen. No free fluid or free air. Focal areas of nodular soft tissue thickening within the subcutaneous adipose layer of the anterior m idabdomen suggesting subcutaneous injections. Fibroid uterus. No adnexal mass. No abnormal fluid collection in the pelvis or pelvic lymphadenopathy . Bones: No osseous destructive process seen. IMPRESSION: 1. Exam compared to the PET/CT of 11/19/2017. There is no longer any abnormal hypermetabolism seen in t he patient's left paramedian cerebellar lesion. 2. Increasing size and hypermetabolism of the patient's right upper lobe mass (5.4 x 3.2 cm versus 4. 7 x 1.8 cm, previously). Possible moderate-sized malignant right pleural effusion. Suggestion of smal l metastatic pleural deposits on the right as well. 3. New 2 cm hypermetabolic right midlung pulmonary nodule and 2 new suspicious 1 cm mediastinal lymph nodes. 4. Subtle subcentimeter hypermetabolic nodularity within the liver suspicious for small hepatic metas tases. 5. Mild focal increased uptake involving the right posterolateral 10th, 11th, and 12th ribs. This is equivocal between early occult osseous metastatic disease or a traumatic etiology and further clinica l correlation is recommended. The latter is somewhat favored. 6. Incidental: Prominent fluid-filled small bowel loops in the abdomen and liquid stool in the right side of the colon. Correlate for enteritis.
== END | disposition home or self-care (01) ==
LOC: RADPETMAIN 07:56
PROVIDERS: ATTEND Internal Medicine Hematology & Oncology
DX: C50.611 Malignant neoplasm of axillary tail of right female breast (principal); R91.1 Solitary pulmonary nodule; K76.89 Other specified diseases of liver; R91.8 Other nonspecific abnormal finding of lung field; R94.8 Abnormal results of function studies of other organs and systems
CPT/HCPCS: 78815; A9552

== ENCOUNTER 2018-07-17 00:08 | Inpatient (IN) | payer MEDICARE ==
[2018-07-17] MEDS ORDERED: ALBUTEROL NEBULIZED 2.5 MG/3 ML INHALATION STA (00:43)
--- NOTE | 2018-07-17 00:43 | ED ---
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 The patient is feeling very short of breath and as a consequence is deferring to her who is giving most of the history. They state that the patient's having episodic dyspnea, usually in relation to exertion. this is been going on for a couple of months. The patient had told her oncologist about this and she had a PET scan that reportedly showed some metastases to the right chest wall. She did have radiation therapy for this, 5 sessions, the last of which was given Tuesday. The patient has not been having fever or chills or a productive cough. The remainder of the review of systems is negative. MD Complaint: shortness of breath Onset/Timin -: month(s) Consistency: intermittent Improves With: rest Worsens With: exertion Associated Symptoms: denies other symptoms Treatments Prior to Arrival: none - Related Data Home Oxygen Therapy: No Home Medications Medication Instructions Recorded Confirmed Aspirin 81 mg PO DAILY 09/10/14 07/17/18 Calcium Carbonate/Vitamin D3 1 tab PO DAILY 09/10/14 07/17/18 [Calcium 600-Vit D3 400 Tablet] Insulin Aspart [NovoLOG Flexpen] 5 unit SQ AC-BRKFST 09/10/14 07/17/18 Insulin Aspart [NovoLOG Flexpen] 8 unit SQ AC-LUNCH 09/10/14 07/17/18 Insulin Aspart [NovoLOG Flexpen] 8 unit SQ AC-SUPPER 09/10/14 07/17/18 Levothyroxine Sodium [Synthroid] 100 mcg PO DAILY 09/10/14 07/17/18 Multivitamins, Thera [Multivitamin 1 tab PO DAILY 09/10/14 07/17/18 (formulary)] Hendricks-3S/Dha/Epa/Fish Oil [Hendricks-3 1 cap PO DAILY 09/10/14 07/17/18 Fish Oil 1,000 mg Sfgl] Omeprazole [PriLOSEC] 20 mg PO DAILY 09/10/14 07/17/18 amLODIPine [Norvasc] 10 mg PO DAILY 09/10/14 07/17/18 Biotin Forte 1 tab PO DAILY 10/24/17 07/17/18 Canagliflozin [Invokana] 100 mg PO DAILY 10/24/17 07/17/18 Cholecalciferol [Vitamin D3] 1,000 unit PO DAILY 10/24/17 07/17/18 Ferrous Gluconate 324 mg PO DAILY 10/24/17 07/17/18 Insulin Glargine,Hum.rec.anlog 23 unit SQ HS 10/24/17 07/17/18 [Lantus Solostar] Loperamide [Imodium] 2 mg PO QID PRN 10/24/17 07/17/18 Naproxen Sodium [Aleve] 440 - 660 mg PO DAILY PRN 10/24/17 07/17/18 Prochlorperazine [Compazine] 10 mg PO Q6H PRN 10/24/17 07/17/18 Sertraline [Zoloft] 100 mg PO HS 10/24/17 07/17/18 metFORMIN HCL [Glucophage] 500 mg PO BID 10/24/17 07/17/18 Previous Rx's Medication Instructions Recorded Acetaminophen Tab [Tylenol] 650 mg PO Q6HR PRN tab 07/20/18 Furosemide [Lasix] 20 mg PO BID #60 tab 07/20/18 HYDROcodone/APAP 7.5-325MG [[place] 1 each PO Q4H PRN #18 tab 07/20/18 7.5-325] Morphine Sulfate ER [Ms Contin] 15 mg PO Q12HR #6 tablet 07/20/18 predniSONE 0 mg PO DIRECTED #40 tab 07/20/18 Allergies Allergy/AdvReac Type Severity Reaction Status Date / Time adhesive Allergy Itching Verified 07/17/18 09:48 Penicillins Allergy Rash/Hives Verified 07/17/18 09:48 Sulfa (Sulfonamide Allergy Rash/Hives Verified 07/17/18 09:48 Antibiotics) guaifenesin AdvReac Nausea & Verified 07/17/18 09:48 Vomiting Review of Systems ROS Statement: Those systems with pertinent positive or pertinent negative responses have been documented in the HPI. ROS Other: All systems not noted in ROS Statement are negative. Constitutional: Denies: fever, chills ENT: Denies: congestion Respiratory: Reports: dyspnea. Denies: cough, wheezes Cardiovascular: Reports: chest pain, dyspnea on exertion. Denies: palpitations , orthopnea, edema, syncope Gastrointestinal: Denies: abdominal pain, vomiting, diarrhea Genitourinary: Denies: dysuria, hematuria Musculoskeletal: Denies: back pain Skin: Denies: rash Neurological: Denies: headache, weakness Past Medical History Past Medical History: Cancer, Diabetes Mellitus, Eye Disorder, GERD/Reflux, Hyperlipidemia, Hypertension, Osteoarthritis (OA), Thyroid Disorder Additional Past Medical History / Comment(s): bilateral breast cancer, depression, cervical spine degenerative disc disease, CURRENTLY ON CHEMOTHERAPY R/T "SPOTS ON LUNGS" Q 3 WEEKS, BEGINNING CATARACTS History of Any Multi-Drug Resistant Organisms: None Reported Past Surgical History: Section, Cholecystectomy, Orthopedic Surgery Additional Past Surgical History / Comment(s): Bilateral mastectomies 2005 and 2011, left shoulder arthroscopy,left wrist surgry,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 PORT A CATHX2 CURRENTLY LEFT CHEST, BX OF LYMPH NODES Past Anesthesia/Blood Transfusion Reactions: Motion Sickness, Postoperative Nausea & Vomiting (PONV) Past Psychological History: Depression Smoking Status: Never smoker Past Alcohol Use History: None Reported Past Drug Use History: None Reported - Past Family History Father Family Medical History: Cancer, Hypertension, Myocardial Infarction ([place]) Additional Family Medical History / Comment(s): AT AGE 85 Mother Family Medical History: Neurologic Disorder Additional Family Medical History / Comment(s): AT AGE 80 ANUERYSM Sister(s) Family Medical History: Cancer General Exam Limitations: no limitations General appearance: alert, in distress Head exam: Present: atraumatic, normocephalic Eye exam: Present: normal appearance. Absent: scleral icterus, conjunctival injection Respiratory exam: Present: respiratory distress, wheezes. Absent: rales, rhonchi, stridor, decreased breath sounds Cardiovascular Exam: Present: normal rhythm, tachycardia, normal heart sounds. Absent: systolic murmur, diastolic murmur, rubs, gallop GI/Abdominal exam: Present: soft. Absent: distended, tenderness, guarding, rebound, mass Extremities exam: Present: normal inspection, normal capillary refill. Absent: pedal edema, calf tenderness Back exam: Present: normal inspection. Absent: CVA tenderness (R), CVA tenderness (L) Neurological exam: Present: alert Skin exam: Present: warm, dry, intact, normal color. Absent: rash Course Vital Signs 07/17/18 07/17/18 07/17/18 00:10 00:14 01:05 Temperature 98.2 F Pulse Rate 111 H 104 H 96 Respiratory 16 22 Rate Blood Pressure 138/73 159/83 O2 Sat by Pulse 60 L 83 L Oximetry 07/17/18 07/17/18 07/17/18 01:15 03:04 03:47 Temperature Pulse Rate 95 79 86 Respiratory 21 16 Rate Blood Pressure 111/61 126/74 O2 Sat by Pulse 97 97 Oximetry 07/17/18 07/17/18 07/17/18 04:26 05:00 06:00 Temperature 98.4 F Pulse Rate 93 68 97 Respiratory 16 18 16 Rate Blood Pressure 139/72 134/69 125/62 O2 Sat by Pulse 94 L 100 94 L Oximetry - Reevaluation(s) Reevaluation #1: 07/17/18 02:[address] Montez, for admission and Dr. Patino, who requests that we attempt the thoracocentesis here. Additional treatment recommendations incorporated. Procedures - Paracentesis Consent Obtained: written consent Time Out Performed: Yes Local Anesthetic Used: Lidocaine 1% Fluid: clear Post Procedure Exam: awake, alert Patient Tolerated Procedure: well Complications: none Medical Decision Making - Medical Decision Making Please note that the procedure note pertains to a thoracentesis rather than paracentesis. The thoracentesis been performed, indication being tension hydrothorax. Risks, benefits, and indications were discussed with patient and her . Risks including infection, bleeding, pneumothorax, malignant seeding, and others. Patient does consent. The procedures performed without complication and 2 L of fluid withdrawn. During the second liter being withdrawn, the patient did state that she was becoming too fatigued from sitting up and requested that terminate. The second liter was finished and the patient was allowed to lie down. Chest x-ray obtained to rule out pneumothorax, does reveal there is increased inflation of the lung, no pneumothorax seen. - Lab Data Result diagrams: 07/20/18 06:35 07/20/18 06:35 Lab Results 07/17/18 07/17/18 07/17/18 Range/Units 00:40 00:40 00:40 WBC 11.3 H (3.8-10.6) k/uL RBC 4.06 (3.80-5.40) m/uL Hgb 11.6 (11.4-16.0) gm/dL Hct 35.9 (34.0-46.0) % MCV 88.4 (80.0-100.0) fL MCH 28.6 (25.0-35.0) pg MCHC 32.3 (31.0-37.0) g/dL RDW 19.0 H (11.5-15.5) % Plt Count 327 (150-450) k/uL Neutrophils % 84 % Lymphocytes % 4 % Monocytes % 10 % Eosinophils % 1 % Basophils % 0 % Neutrophils # 9.5 H (1.3-7.7) k/uL Lymphocytes # 0.4 L (1.0-4.8) k/uL Monocytes # 1.2 H (0-1.0) k/uL Eosinophils # 0.1 (0-0.7) k/uL Basophils # 0.0 (0-0.2) k/uL Hypochromasia Moderate Anisocytosis Slight PT (9.0-12.0) sec INR (<1.2) APTT (22.0-30.0) sec D-Dimer (<0.60) mg/L FEU Sodium 131 L (137-145) mmol/L Potassium 4.8 (3.5-5.1) mmol/L Chloride 93 L (98-107) mmol/L Carbon Dioxide 27 (22-30) mmol/L Anion Gap 11 mmol/L BUN 24 H (7-17) mg/dL Creatinine 0.52 (0.52-1.04) mg/dL Est GFR (CKD-EPI)AfAm >90 (>60 ml/min/1.73 sqM) Est GFR (CKD-EPI)NonAf >90 (>60 ml/min/1.73 sqM) Glucose 141 H (74-99) mg/dL Estimated Ave Glu mg/dL Hemoglobin A1c (4.0-6.0) % Calcium 9.3 (8.4-10.2) mg/dL Total Bilirubin 0.6 (0.2-1.3) mg/dL AST 54 H (14-36) U/L ALT 29 (9-52) U/L Alkaline Phosphatase 108 (38-126) U/L Lactate Dehydrogenase (313-618) U/L Total Creatine Kinase 80 (30-135) U/L CK-MB (CK-2) 0.8 (0.0-2.4) ng/mL CK-MB (CK-2) Rel Index 1.0 Troponin I 0.016 (0.000-0.034) ng/mL NT-Pro-B Natriuret Pep pg/mL Total Protein 6.5 (6.3-8.2) g/dL Albumin 3.5 (3.5-5.0) g/dL Fluid Source Fluid Color Fluid Appearance Fluid RBC /uL Fluid Nucleated Cells /uL Fluid Polynuclear WBCs % Fluid Mononuclear WBCs % Body Fluid Protein Source Fluid Total Protein mg/dL Body Fluid LDH Source Fluid LDH U/L 07/17/18 07/17/18 07/17/18 Range/Units 00:40 00:40 00:40 WBC (3.8-10.6) k/uL RBC (3.80-5.40) m/uL Hgb (11.4-16.0) gm/dL Hct (34.0-46.0) % MCV (80.0-100.0) fL MCH (25.0-35.0) pg MCHC (31.0-37.0) g/dL RDW (11.5-15.5) % Plt Count (150-450) k/uL Neutrophils % % Lymphocytes % % Monocytes % % Eosinophils % % Basophils % % Neutrophils # (1.3-7.7) k/uL Lymphocytes # (1.0-4.8) k/uL Monocytes # (0-1.0) k/uL Eosinophils # (0-0.7) k/uL Basophils # (0-0.2) k/uL Hypochromasia Anisocytosis PT 9.3 (9.0-12.0) sec INR 0.9 (<1.2) APTT 25.1 (22.0-30.0) sec D-Dimer 0.87 H (<0.60) mg/L FEU Sodium (137-145) mmol/L Potassium (3.5-5.1) mmol/L Chloride (98-107) mmol/L Carbon Dioxide (22-30) mmol/L Anion Gap mmol/L BUN (7-17) mg/dL Creatinine (0.52-1.04) mg/dL Est GFR (CKD-EPI)AfAm (>60 ml/min/1.73 sqM) Est GFR (CKD-EPI)NonAf (>60 ml/min/1.73 sqM) Glucose (74-99) mg/dL Estimated Ave Glu mg/dL 169 Hemoglobin A1c 7.5 H (4.0-6.0) % Calcium (8.4-10.2) mg/dL Total Bilirubin (0.2-1.3) mg/dL AST (14-36) U/L ALT (9-52) U/L Alkaline Phosphatase (38-126) U/L Lactate Dehydrogenase (313-618) U/L Total Creatine Kinase (30-135) U/L CK-MB (CK-2) (0.0-2.4) ng/mL CK-MB (CK-2) Rel Index Troponin I (0.000-0.034) ng/mL NT-Pro-B Natriuret Pep 451 pg/mL Total Protein (6.3-8.2) g/dL Albumin (3.5-5.0) g/dL Fluid Source Fluid Color Fluid Appearance Fluid RBC /uL Fluid Nucleated Cells /uL Fluid Polynuclear WBCs % Fluid Mononuclear WBCs % Body Fluid Protein Source Fluid Total Protein mg/dL Body Fluid LDH Source Fluid LDH U/L 07/17/18 07/17/18 07/17/18 Range/Units 02:03 02:30 02:30 WBC (3.8-10.6) k/uL RBC (3.80-5.40) m/uL Hgb (11.4-16.0) gm/dL Hct (34.0-46.0) % MCV (80.0-100.0) fL MCH (25.0-35.0) pg MCHC (31.0-37.0) g/dL RDW (11.5-15.5) % Plt Count (150-450) k/uL Neutrophils % % Lymphocytes % % Monocytes % % Eosinophils % % Basophils % % Neutrophils # (1.3-7.7) k/uL Lymphocytes # (1.0-4.8) k/uL Monocytes # (0-1.0) k/uL Eosinophils # (0-0.7) k/uL Basophils # (0-0.2) k/uL Hypochromasia Anisocytosis PT (9.0-12.0) sec INR (<1.2) APTT (22.0-30.0) sec D-Dimer (<0.60) mg/L FEU Sodium (137-145) mmol/L Potassium (3.5-5.1) mmol/L Chloride (98-107) mmol/L Carbon Dioxide (22-30) mmol/L Anion Gap mmol/L BUN (7-17) mg/dL Creatinine (0.52-1.04) mg/dL Est GFR (CKD-EPI)AfAm (>60 ml/min/1.73 sqM) Est GFR (CKD-EPI)NonAf (>60 ml/min/1.73 sqM) Glucose (74-99) mg/dL Estimated Ave Glu mg/dL Hemoglobin A1c (4.0-6.0) % Calcium (8.4-10.2) mg/dL Total Bilirubin (0.2-1.3) mg/dL AST (14-36) U/L ALT (9-52) U/L Alkaline Phosphatase (38-126) U/L Lactate Dehydrogenase 890 H (313-618) U/L Total Creatine Kinase (30-135) U/L CK-MB (CK-2) (0.0-2.4) ng/mL CK-MB (CK-2) Rel Index Troponin I (0.000-0.034) ng/mL NT-Pro-B Natriuret Pep pg/mL Total Protein (6.3-8.2) g/dL Albumin (3.5-5.0) g/dL Fluid Source Thoracentesis Fluid Color Yellow Fluid Appearance Hazy Fluid RBC 4270 /uL Fluid Nucleated Cells 260 /uL Fluid Polynuclear WBCs 14 % Fluid Mononuclear WBCs 86 % Body Fluid Protein Source Fluid Total Protein mg/dL Body Fluid LDH Source Thoracentesis Fluid Fluid LDH 205 U/L 07/17/18 Range/Units 02:30 WBC (3.8-10.6) k/uL RBC (3.80-5.40) m/uL Hgb (11.4-16.0) gm/dL Hct (34.0-46.0) % MCV (80.0-100.0) fL MCH (25.0-35.0) pg MCHC (31.0-37.0) g/dL RDW (11.5-15.5) % Plt Count (150-450) k/uL Neutrophils % % Lymphocytes % % Monocytes % % Eosinophils % % Basophils % % Neutrophils # (1.3-7.7) k/uL Lymphocytes # (1.0-4.8) k/uL Monocytes # (0-1.0) k/uL Eosinophils # (0-0.7) k/uL Basophils # (0-0.2) k/uL Hypochromasia Anisocytosis PT (9.0-12.0) sec INR (<1.2) APTT (22.0-30.0) sec D-Dimer (<0.60) mg/L FEU Sodium (137-145) mmol/L Potassium (3.5-5.1) mmol/L Chloride (98-107) mmol/L Carbon Dioxide (22-30) mmol/L Anion Gap mmol/L BUN (7-17) mg/dL Creatinine (0.52-1.04) mg/dL Est GFR (CKD-EPI)AfAm (>60 ml/min/1.73 sqM) Est GFR (CKD-EPI)NonAf (>60 ml/min/1.73 sqM) Glucose (74-99) mg/dL Estimated Ave Glu mg/dL Hemoglobin A1c (4.0-6.0) % Calcium (8.4-10.2) mg/dL Total Bilirubin (0.2-1.3) mg/dL AST (14-36) U/L ALT (9-52) U/L Alkaline Phosphatase (38-126) U/L Lactate Dehydrogenase (313-618) U/L Total Creatine Kinase (30-135) U/L CK-MB (CK-2) (0.0-2.4) ng/mL CK-MB (CK-2) Rel Index Troponin I (0.000-0.034) ng/mL NT-Pro-B Natriuret Pep pg/mL Total Protein (6.3-8.2) g/dL Albumin (3.5-5.0) g/dL Fluid Source Fluid Color Fluid Appearance Fluid RBC /uL Fluid Nucleated Cells /uL Fluid Polynuclear WBCs % Fluid Mononuclear WBCs % Body Fluid Protein Source Thoracentesis Fluid Fluid Total Protein 471.4 mg/dL Body Fluid LDH Source Fluid LDH U/L - EKG Data -: EKG Interpreted by Me EKG shows normal: sinus rhythm, axis (Normal normal), intervals (Normal), QRS complexes Rate: tachycardia Interpretation: nonspecific ST-T wave changes Critical Care Time Critical Care Time: Yes (40 minutes) Disposition Clinical Impression: Pleural effusion Disposition: ADMITTED IP TO THIS HOSP Condition: Good Is patient prescribed a controlled substance at d/c from ED?: No
--- NOTE | 2018-07-17 01:29 | XR ---
EXAMINATION TYPE: XR chest 1V portable DATE OF EXAM: 07/17/2018 COMPARISON: 03/27/2012 And 06/27/2018 HISTORY: Short of breath TECHNIQUE: Single frontal view of the chest is obtained. FINDINGS: There is almost complete opacification of the right hemithorax. There is extensive infiltr ate in the left lung. There is left central venous catheter with the tip in the superior vena cava. H eart is shifted slightly to the left side. IMPRESSION: There is right-sided hydrothorax. There is extensive edema in the left lung and this is new compared to the rib x-rays recently of 06/27/2018. RDS is possible. 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 This exam was discussed with ER physician at 1:25 AM.
[2018-07-17 01:37] LABS: Anisocytosis Slight; Basophils % (A) 0 %; Eosinophils # (A) 0.1 k/uL (0-0.7); Eosinophils % (A) 1 %; HCT 35.9 % (34.0-46.0); HGB 11.6 gm/dL (11.4-16.0); Hypochromasia Moderate; Lymphocytes # (A) 0.4 k/uL (1.0-4.8); Lymphocytes % (A) 4 %; MCH 28.6 pg (25.0-35.0); MCHC 32.3 g/dL (31.0-37.0); MCV 88.4 fL (80.0-100.0); Mean Platelet Volume 7.2; Monocytes # (A) 1.2 k/uL (0-1.0); Monocytes % (A) 10 %; Neutrophils # (A) 9.5 k/uL (1.3-7.7); Neutrophils % (A) 84 %; Platelet Count 327 k/uL (150-450); RBC 4.06 m/uL (3.80-5.40); WBC 11.3 k/uL (3.8-10.6)
[2018-07-17 01:43] LABS: Albumin 3.5 g/dL (3.5-5.0); Anion Gap 11 mmol/L; Blood Urea Nitrogen 24 mg/dL (7-17); Calcium 9.3 mg/dL (8.4-10.2); Carbon Dioxide 27 mmol/L (22-30); Chloride 93 mmol/L (98-107); Glucose 141 mg/dL (74-99); Sodium 131 mmol/L (137-145); Total Bilirubin 0.6 mg/dL (0.2-1.3); Total Protein 6.5 g/dL (6.3-8.2)
[2018-07-17 01:45] LABS: ALT 29 U/L (9-52); AST 54 U/L (14-36); Alkaline Phosphatase 108 U/L (38-126); Potassium 4.8 mmol/L (3.5-5.1)
[2018-07-17] MEDS ORDERED: LEVOFLOXACIN 750MG-D5W PMX 750 MG in DEXTROSE/WATER 1 150ML.BAG IVPB STA (01:45)
[2018-07-17 01:53] LABS: INR 0.9 (<1.2); Prothrombin Time 9.3 sec (9.0-12.0)
[2018-07-17 01:54] LABS: Partial Thromboplastin Time 25.1 sec (22.0-30.0)
[2018-07-17 01:59] LABS: D-Dimer 0.87 mg/L FEU (<0.60)
[2018-07-17 02:03] LABS: Creatine Kinase MB 0.8 ng/mL (0.0-2.4); Troponin I 0.016 ng/mL (0.000-0.034)
[2018-07-17] MEDS ORDERED: MORPHINE SULFATE 4 MG/ML SYRINGE IV STA (02:13)
[2018-07-17] MEDS ORDERED: LIDOCAINE 1% INJ 10MG/ML (20 ML MDV) SQ STA (02:17)
[2018-07-17] MEDS ORDERED: TOPICAL SKIN ADHESIVE 1 EACH AMP TOPICAL ONE (02:57)
[2018-07-17] MEDS ORDERED: ONDANSETRON 4 MG/2 ML VIAL IVP PRN (03:25)
[2018-07-17] MEDS ORDERED: NALOXONE 0.4 MG/ML 1 ML VIAL IV PRN (03:25)
[2018-07-17] MEDS ORDERED: PROCHLORPERAZINE 10 MG TAB PO PRN (03:33)
[2018-07-17] MEDS ORDERED: LOPERAMIDE 2 MG CAP PO PRN (03:33)
[2018-07-17] MEDS ORDERED: HYDROcodone/APAP 10-325MG 1 EACH TAB PO ONE (03:40)
[2018-07-17] MEDS ORDERED: NON-FORMULARY DRUG (Capecitabine [Xeloda] 1,000 MG) PO SCH (03:45)
--- NOTE | 2018-07-17 03:54 | XR ---
EXAMINATION TYPE: XR chest 1V portable DATE OF EXAM: 07/17/2018 COMPARISON: Today HISTORY: Postthoracentesis TECHNIQUE: Single frontal view of the chest is obtained. FINDINGS: There are bilateral extensive pulmonary infiltrates. There is blunting of right costophren ic angle. Trachea is midline. There is left-sided central venous catheter with tip in the superior ve na cava. There are chest leads. IMPRESSION: There is significant improved aeration of the right hemithorax compared to last exam. Th ere is clearing of the tension hydrothorax. Congestive heart failure with pulmonary infiltrates. RDS is possible. Right pleural effusion.
[2018-07-17 04:05] LABS: Appearance,BF Hazy; Color,BF Yellow
[2018-07-17] MEDS: SODIUM CHLORIDE 0.9% 1,000 ML IV SCH (04:21)
[2018-07-17 04:51] LABS: Nucleated Cells, Body Fluid 260 /uL
[2018-07-17 04:52] LABS: RBC, Body Fluid 4270 /uL
[2018-07-17 04:59] LABS: Mononuclear WBC,Body Fluid 86 %; Polynuclear WBC,Body Fluid 14 %; Total Cells Counted,Body Fluid 100
[2018-07-17] MEDS: AZTREONAM 2 GM in SODIUM CHLORIDE 0.9% 100 ML IVPB SCH ×3 (05:17→21:46)
[2018-07-17] MEDS: MORPHINE SULFATE 4 MG/ML SYRINGE IV PRN ×3 (06:46→20:12)
[2018-07-17 07:51] LABS: Glucose,Whole Blood 176 mg/dL (75-99)
[2018-07-17 08:09] VITALS: BMI 29.2
[2018-07-17] MEDS: ASPIRIN 81 MG PO SCH (08:31)
[2018-07-17] MEDS: SERTRALINE 100 MG TAB PO SCH (08:31)
[2018-07-17] MEDS: LEVOTHYROXINE 100 MCG TAB PO SCH (08:32)
[2018-07-17] MEDS: PANTOPRAZOLE 40 MG TABLET PO SCH (08:32)
[2018-07-17] MEDS: FERROUS SULFATE 325 MG TAB PO SCH (08:32)
[2018-07-17] MEDS: INSULIN ASPART 100 UNIT/ML 1 ML 10 ML VIAL SQ SCH ×7 (08:32→21:33)
[2018-07-17] MEDS: CHOLECALCIFEROL 1,000 UNIT TAB PO SCH (08:32)
[2018-07-17] MEDS: amLODIPine 10 MG TAB PO SCH (08:35)
[2018-07-17] MEDS: INVOKANA 100MG PO SCH (08:39)
[2018-07-17] MEDS ORDERED: metFORMIN 500 MG TAB PO SCH (09:00)
[2018-07-17] MEDS ORDERED: FUROSEMIDE 10 MG/ML 4 ML VIAL IV SCH ×2 (09:15→16:00)
[2018-07-17] MEDS ORDERED: RX INFO: IV CONTRAST WAS GIVEN 1 EACH MISC MISCELLANE PRN (09:51)
[2018-07-17] MEDS: traMADol 50 MG TAB PO PRN ×2 (10:01→21:45)
--- NOTE | 2018-07-17 10:31 | XR ---
EXAMINATION TYPE: XR chest 1V portable DATE OF EXAM: 07/17/2018 HISTORY: Shortness of breath. COMPARISON: 07/17/2018 TECHNIQUE: Single view of the chest is submitted. FINDINGS: Demonstrated are scattered senescent parenchymal change. Diffuse infiltrates persist throughout both lung [place]. Heart size is stable. Small right-sided effu adrian noted. Central venous line unchanged in position. Hilar and mediastinal structures are within normal limits. Degenerative changes are seen of the dorsal spine. IMPRESSION: 1. Diffuse infiltrates persist throughout both lung [place]. Heart size is stable. Small right-sided effusion noted.
[2018-07-17 11:13] LABS: Glucose,Whole Blood 218 mg/dL (75-99)
--- NOTE | 2018-07-17 11:46 | CONS ---
CONSULTATION CHIEF COMPLAINT: Shortness of breath. Abbey Mcduffie is a 68-year-old lady with history of metastatic breast cancer, who presented to [facility] Emergency Room complaining of shortness of breath. Patient has been having exertional shortness of breath for the last 2 months, but has suddenly become short of breath prior to coming in. Patient has a history of breast cancer that has metastasized both to the lungs and the right-sided chest wall. She had radiation therapy and the most recent radiation was given on Tuesday. On her initial evaluation in the ER, she was found to have right-sided pleural effusion and possible hydropneumothorax. They drained the pleural effusion with some improvement in her symptoms. She has bilateral infiltration. Chest x-ray showed hydropneumothorax, this was after the thoracentesis. Repeat chest x- ray shows improved aeration on the right side and there was diffuse bilateral pulmonary infiltrate. At the time of my evaluation this morning, patient appeared short of breath. Her BNP is 450. Creatinine is normal at 0.5. I believe the bilateral noted on her chest x-ray are probably due to metastatic lung cancer from the carcinoma of the breast and not related to pulmonary edema both based on her history, clinical presentation and normal BNP. I am going to obtain a 2-D echo on her to evaluate her LV function. PAST MEDICAL HISTORY: Past medical history is significant for metastatic breast cancer, [id number] diabetes, hypertension, hypothyroidism, and insulin-requiring diabetes. ALLERGIES: Allergic to PENICILLIN, SULFA, and GUAIFENESIN. FAMILY HISTORY: Family history is significant for coronary artery disease in her father. SOCIAL HISTORY: Negative for current smoking, EtOH abuse, or drug abuse. REVIEW OF SYSTEMS: HEENT is unremarkable. CARDIAC: As described above. RESPIRATORY: As described above. GI: Negative. GENITOURINARY: Negative. ALLERGY/IMMUNOLOGY: Negative. SKIN: Negative. MUSCULOSKELETAL: Significant for arthritis and possible metastatic cancer. PSYCHOSOCIAL: Negative. ENDOCRINE: Negative. HEMATOLOGIC: Negative. DERM: Negative. CONSTITUTIONAL: Negative. ONCOLOGICAL: . Rest of the system review is not relevant. PHYSICAL EXAMINATION: On exam, patient is afebrile. Heart rate is 90 beats per minute. Blood pressure is 120/70, respiratory rate is 18. Chest exam reveals that there is diminished air entry at the right base. Heart exam reveals first and second heart sounds. No gallop. No murmur. No rub. Abdomen is soft, nontender. Examination of extremities did not reveal any edema. Peripheral pulses are palpable. LABS: Labs show a hemoglobin of 11.6. D-dimer is 0.87. BNP is normal. Her pleural fluid analysis shows that it is hemorrhagic. EKG shows sinus rhythm with nonspecific ST-T wave changes. ASSESSMENT: 1. Shortness of breath secondary to right-sided pleural effusion. 2. Hypertension. 3. Diabetes. 4. Metastatic breast cancer. PLAN: Her shortness of breath is not related to congestive heart failure. Her clinical presentation including the chest x-ray appearance is more consistent with metastatic breast cancer including diffuse infiltrative metastasis in both lungs. I am going to review the echo and follow her during her hospitalization. Patient is on IV Lasix 40 mg q.8 hours, I am going to cut back the dose to b.i.d. today and cut back further tomorrow. MMODL / IJN: [id number] /
--- NOTE | 2018-07-17 11:52 | CT ---
EXAMINATION TYPE: CT chest angio for PE DATE OF EXAM: 07/17/2018 COMPARISON: Nuclear medicine PET/CT 07/01/2018 HISTORY: SOB, PE CT DLP: 283.7 mGycm Automated exposure control for dose reduction was used. CONTRAST: CT Chest for pulmonary embolism performed with with IV Contrast, patient injected with 65 mL of Isovu e 300. FINDINGS: Bilateral breast implants are present. LUNGS: There are several areas of scattered groundglass opacity. Consolidation noted in the right upp er lobe, patient's mass again noted with some interval increase in consolidation at the apex and medi al aspect of the right upper lobe, right lower lobe. Right pleural effusion is present with associate d atelectatic change. MEDIASTINUM: There is satisfactory enhancement of the pulmonary artery and its branches, there is no CT evidence for pulmonary embolism. There are no greater than 1 cm hilar or mediastinal lymph nodes. No pericardial effusion is seen. There are coronary artery calcifications present. AORTA: No additional significant abnormality is seen. OTHER: Right adrenal gland shows a low dense mass as on prior may represent adenoma.. IMPRESSION: No evident pulmonary embolism. Findings in the lung could be due in part to hypersensitivity pneumoni tis, underlying mass, metastasis. Right pleural effusion was present on prior exam.
[2018-07-17 12:21] LABS: Total Protein, Body Fluid 471.4 mg/dL
--- NOTE | 2018-07-17 13:18 | P.CONS ---
History of Present Illness - Reason for Consult Consult date: 07/17/18 Metastatic Breast Cancer Requesting physician: Ranjan Garcia - Chief Complaint SOB - History of Present Illness Abbey is a pleasant 68 year old patient well known to our practive for treatment of her Metastatic Breast Cancer since before 2011. Primary Oncologist Dr. French. Abbey has undergone many lines of therapy for her metastastic disease, most recently SRS radiation to brain, treatment with Xeloda (PO chemotherapy) and now status post radiation to increased right lung nodule which showed progression on recent PET Scan. She was to start new line chemotherapy with Taxol and Herceptin on 07/19/18 but presented [address] [facility] with increased right chest pain and Shortness of Breath. She is status post 2 liters off via thoracentesis although still working very hard to breath. She is Saturating with Oxygen at 90-92% on non-rebreather. Review of Systems A 14 point review of systems assessed and completed and all negative except HPI Past Medical History Past Medical History: Cancer, Diabetes Mellitus, Eye Disorder, GERD/Reflux, Hyperlipidemia, Hypertension, Osteoarthritis (OA), Thyroid Disorder Additional Past Medical History / Comment(s): bilateral breast cancer, depression, cervical spine degenerative disc disease, CURRENTLY ON CHEMOTHERAPY R/T "SPOTS ON LUNGS" Q 3 WEEKS, BEGINNING CATARACTS History of Any Multi-Drug Resistant Organisms: None Reported Past Surgical History: Section, Cholecystectomy, Orthopedic Surgery Additional Past Surgical History / Comment(s): Bilateral mastectomies 2005 and 2011, left shoulder arthroscopy,left wrist surgry,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 PORT A CATHX2 CURRENTLY LEFT CHEST, BX OF LYMPH NODES Past Anesthesia/Blood Transfusion Reactions: Motion Sickness, Postoperative Nausea & Vomiting (PONV) Past Psychological History: Depression Smoking Status: Never smoker Past Alcohol Use History: None Reported Past Drug Use History: None Reported - Past Family History Father Family Medical History: Cancer, Hypertension, Myocardial Infarction ([place]) Additional Family Medical History / Comment(s): AT AGE 85 Mother Family Medical History: Neurologic Disorder Additional Family Medical History / Comment(s): AT AGE 80 ANUERYSM Sister(s) Family Medical History: Cancer Medications and Allergies Home Medications Medication Instructions Recorded Confirmed Type Aspirin 81 mg PO DAILY 09/10/14 07/17/18 History Calcium Carbonate/Vitamin D3 1 tab PO DAILY 09/10/14 07/17/18 History [Calcium 600-Vit D3 400 Tablet] Insulin Aspart [NovoLOG Flexpen] 5 unit SQ AC-BRKFST 09/10/14 07/17/18 History Insulin Aspart [NovoLOG Flexpen] 8 unit SQ AC-LUNCH 09/10/14 07/17/18 History Insulin Aspart [NovoLOG Flexpen] 8 unit SQ AC-SUPPER 09/10/14 07/17/18 History Levothyroxine Sodium [Synthroid] 100 mcg PO DAILY 09/10/14 07/17/18 History Multivitamins, Thera [Multivitamin 1 tab PO DAILY 09/10/14 07/17/18 History (formulary)] [place]-3S/Dha/Epa/Fish Oil [[place]-3 1 cap PO DAILY 09/10/14 07/17/18 History Fish Oil 1,000 mg Sfgl] Omeprazole [PriLOSEC] 20 mg PO DAILY 09/10/14 07/17/18 History amLODIPine [Norvasc] 10 mg PO DAILY 09/10/14 07/17/18 History Biotin Forte 1 tab PO DAILY 10/24/17 07/17/18 History Canagliflozin [Invokana] 100 mg PO DAILY 10/24/17 07/17/18 History Cholecalciferol [Vitamin D3] 1,000 unit PO DAILY 10/24/17 07/17/18 History Ferrous Gluconate 324 mg PO DAILY 10/24/17 07/17/18 History Insulin Glargine,Hum.rec.anlog 23 unit SQ 10/24/17 07/17/18 History [Lantus Solostar] Loperamide [Imodium] 2 mg PO QID PRN 10/24/17 07/17/18 History Naproxen Sodium [Aleve] 440 - 660 mg PO DAILY PRN 10/24/17 07/17/18 History Prochlorperazine [Compazine] 10 mg PO Q6H PRN 10/24/17 07/17/18 History Sertraline [Zoloft] 100 mg PO HS 10/24/17 07/17/18 History metFORMIN HCL [Glucophage] 500 mg PO BID 10/24/17 07/17/18 History Allergies Allergy/AdvReac Type Severity Reaction Status Date / Time adhesive Allergy Itching Verified 10/01/18 09:48 Penicillins Allergy Rash/Hives Verified 07/17/18 09:48 Sulfa (Sulfonamide Allergy Rash/Hives Verified 07/17/18 09:48 Antibiotics) guaifenesin AdvReac Nausea & Verified 07/17/18 09:48 Vomiting Physical Exam Vitals: Vital Signs Temp Pulse Pulse Resp BP BP Pulse Ox 07/17/18 12:00 97.3 F L 98 18 122/70 91 L 07/17/18 07:36 97.4 F L 92 18 119/73 92 L 07/17/18 06:00 97 16 125/62 94 L 07/17/18 05:00 68 18 134/69 100 07/17/18 04:26 98.4 F 93 16 139/72 94 L 07/17/18 03:47 86 16 126/74 97 07/17/18 03:04 79 21 111/61 97 07/17/18 01:15 95 07/17/18 01:05 96 07/17/18 00:14 104 H 22 159/83 83 L 07/17/18 00:10 98.2 F 111 H 16 138/73 60 L Intake and Output 07/16/18 07/17/18 07/17/18 22:59 06:59 14:59 Intake Total 240 Output Total 0 Balance 240 Intake: Oral 240 Output: Urine 0 Other: Weight 77.111 kg General appearance: alert, in moderate distress HEENT: atraumatic, normocephalic non icteric sclera Respiratory mild-mod increased respiratory distress, wheezes and Crackling at RLL Base. Cardiovascular: normal rhythm, tachycardia, Abdominal: soft, distended, BS x4 Extremities: normal without edema or rashing Neurological: cooperative, non-focal alert Skin: warm, dry, intact, normal color. Results CBC & Chem 7: 07/17/18 00:40 07/17/18 00:40 Labs: Abnormal Lab Results - Last 24 Hours (Table) 07/17/18 07/17/18 07/17/18 Range/Units 00:40 00:40 00:40 WBC 11.3 H (3.8-10.6) k/uL RDW 19.0 H (11.5-15.5) % Neutrophils # 9.5 H (1.3-7.7) k/uL Lymphocytes # 0.4 L (1.0-4.8) k/uL Monocytes # 1.2 H (0-1.0) k/uL D-Dimer 0.87 H (<0.60) mg/L FEU Sodium 131 L (137-145) mmol/L Chloride 93 L (98-107) mmol/L BUN 24 H (7-17) mg/dL Glucose 141 H (74-99) mg/dL POC Glucose (mg/dL) (75-99) mg/dL AST 54 H (14-36) U/L Lactate Dehydrogenase (313-618) U/L 07/17/18 07/17/18 07/17/18 Range/Units 02:30 07:45 11:10 WBC (3.8-10.6) k/uL RDW (11.5-15.5) % Neutrophils # (1.3-7.7) k/uL Lymphocytes # (1.0-4.8) k/uL Monocytes # (0-1.0) k/uL D-Dimer (<0.60) mg/L FEU Sodium (137-145) mmol/L Chloride (98-107) mmol/L BUN (7-17) mg/dL Glucose (74-99) mg/dL POC Glucose (mg/dL) 176 H 218 H (75-99) mg/dL AST (14-36) U/L Lactate Dehydrogenase 890 H (313-618) U/L Chest x-ray: report reviewed Assessment and Plan Plan: Assessment and Recommendations: 1. Metastatic Breast Cancer - Lung, Brain, Liver, and Possibly Bone - Status POst Multiple Lines of therapy since 2011 - Status POst Recent Radiation to RUL lung mass (completed last Week) - Plan was to begin next line chemotherapy on July 19, 2018 2. Acute Respiratory Failure secondary to metastatic Disease and PLeural Effusions: - Status Post Thoracentesis removal of 2 Liters, still appears to be in distress. - Obtain CTA of chest to ensure no underlying PE 3. Right Sided PLeural Effusion: - Probable Malignant Effusion as was present prior to radiation therapy although could be related to recent radiation - Await Cytology. Physician Attestation: I have completed the full history and physical of this patient and agree with above dictation by Kennedi Salazar NP. DIctated as a scribe.
--- NOTE | 2018-07-17 13:20 | ECHOF ---
Referral Reason:LVF MEASUREMENTS -------- HEIGHT: 162.6 cm WEIGHT: 77.1 kg BP: RVIDd: 2.8 cm (< 3.3) IVSd: 1.3 cm (0.6 - 1.1) LVIDd: 3.6 cm (3.9 - 5.3) LVPWd: 1.4 cm (0.6 - 1.1) IVSs: 1.9 cm LVIDs: 2.0 cm LVPWs: 1.9 cm LAESV Index (A-L): 19.46 ml/m Ao Diam: 3.2 cm (2.0 - 3.7) AV Cusp: 1.9 cm (1.5 - 2.6) LA Diam: 2.7 cm (2.7 - 3.8) MV EXCURSION: 11.540 mm (> 18.000) MV EF SLOPE: 33 mm/s (70 - 150) EPSS: 1.4 cm MV E Mayur: 1.10 m/s MV DecT: 154 ms MV A Mayur: 1.37 m/s MV E/A Ratio: 0.80 RAP: 5.00 mmHg RVSP: 43.25 mmHg FINDINGS -------- Sinus rhythm. This was a technically adequate study. Pt. Has Breast inplants The left ventricular size is normal. There is mild concentric left ventricular hypertrophy. Overa ll left ventricular systolic function is normal with, an EF between 55 - 60 %. The right ventricle is normal in size and function. The left atrium is normal in size. The right atrium is normal in size. The aortic valve is trileaflet, and appears structurally normal. No aortic stenosis or regurgitation. The mitral valve is normal. Mild mitral regurgitation is present. Mild tricuspid regurgitation present. There is mild pulmonary hypertension. The right ventricular systolic pressure, as measured by Doppler, is 43.25mmHg. There is no pulmonic regurgitation present. The aortic root size is normal. There is no pericardial effusion. CONCLUSIONS -------- 1. Sinus rhythm. 2. This was a technically adequate study. 3. Pt. Has Breast inplants 4. The left ventricular size is normal. 5. There is mild concentric left ventricular hypertrophy. 6. Overall left ventricular systolic function is normal with, an EF between 55 - 60 %. 7. The left atrium is normal in size. 8. The aortic valve is trileaflet, and appears structurally normal. No aortic stenosis or regurgitati on. 9. Mild mitral regurgitation is present. 10. Mild tricuspid regurgitation present. 11. There is mild pulmonary hypertension. 12. There is no pulmonic regurgitation present. 13. The aortic root size is normal. 14. There is no pericardial effusion. PRETZEL COOKER: Mackenzie Simpson RDCS
--- NOTE | 2018-07-17 16:19 | P.HPIM ---
History of Present Illness H&P Date: 07/17/18 Chief Complaint: Chest pain This is a 68-year-old female patient of Dr. Montez with a previous medical history significant for hypertension and hypertensive cardiovascular disease, diabetes mellitus type 2, hypothyroidism, history of breast cancer, vitamin B12 deficiency anemia, recurrent depression. Patient was initially diagnosed with infiltrating ductal carcinoma of the right breast back in 2011 after she did receive a treatment for left breast cancer back in 2005 and has been under the care of hematology oncology Dr. French. Patient has undergone a number of treatments for metastatic disease most recently SRS radiation to the brain, Xeloda, status post radiation to the right lung nodule that showed progression and rate she recent PET scan. She is scheduled to start on Taxol and Herceptin on July 19. She is known to have metastatic disease to the lungs and since October of this year to the brain and ribs. She states that in April she was pulling weeds and she develops a significant pain in the right side of her ribs and there is concern that she cracked a rib but the pain got significantly worse and she was not able to walk outside for the past 2 days. She denies any history of heart failure. She denies cough or shortness of breath. No fever or chills. No abdominal bloating. No lower extremity edema. She came into [facility] emergency center for evaluation. She was afebrile, initial pulse ox 60% on room air followed by 83% on a nonrebreather. WBC 11.3, d-dimer 0.87, creatinine 0.5 to, sodium 131. LDH 890. Troponin 0.016. Initial chest x-ray showed right-sided hydrothorax. Extensive edema in the left lung and new compared to rib x-rays recently of June 27. RDS is possible. Tension pneumothorax. She underwent thoracentesis done by the ER physician with removal of 2 L of fluid and this was sent for cytology. Repeat chest x-ray shows no significant improvement of the right hemithorax. Clearing of tension hydrothorax. Congestive heart failure with pulmonary infiltrates. RDS possible. Right pleural effusion. The next x-ray showed diffuse infiltrates persist throughout the both lung godoy. Heart size is stable. Small right-sided effusion noted. Patient was admitted to the selective care unit. CTA of the chest showed no evidence of pulmonary embolism. Findings in the lung could be due in part to hypersensitivity pneumonitis, underlying mass, metastasis. Right pleural effusion was present on prior exam. Echocardiogram reveals EF of 55-60% with mild concentric left hypertrophy, mild mitral regurgitation, mild tricuspid regurgitation, mild pulmonary hypertension. Patient has been continued on IV Lasix. Patient was seen by cardiology. Patient is also been seen and followed by oncology and consult in place for pulmonary medicine. Repeat chest x-ray ordered for tomorrow. Patient states that her chest pain is not improved after thoracentesis. Review of Systems All systems: negative Constitutional: Reports fatigue, Reports poor appetite, Reports weakness, Denies chills, Denies fever Eyes: denies blurred vision, denies pain Ears, nose, mouth and throat: Denies headache, Denies sore throat Cardiovascular: Reports chest pain, Denies edema, Denies leg edema, Denies shortness of breath Respiratory: Denies cough, Denies cough with sputum, Denies dyspnea, Denies excessive sputum, Denies hemoptysis, Denies home oxygen, Denies wheezing Gastrointestinal: Denies abdominal pain, Denies diarrhea, Denies nausea, Denies vomiting Genitourinary: Denies dysuria, Denies hematuria Musculoskeletal: Denies myalgias Integumentary: Denies pruritus, Denies rash Neurological: Denies numbness, Denies weakness Psychiatric: Denies anxiety, Denies depression Endocrine: Denies fatigue, Denies weight change Past Medical History Past Medical History: Cancer, Diabetes Mellitus, Eye Disorder, GERD/Reflux, Hyperlipidemia, Hypertension, Osteoarthritis (OA), Thyroid Disorder Additional Past Medical History / Comment(s): Metastatic bilateral breast cancer , depression, cervical spine degenerative disc disease, CURRENTLY ON CHEMOTHERAPY R/T "SPOTS ON LUNGS" Q 3 WEEKS, BEGINNING CATARACTS History of Any Multi-Drug Resistant Organisms: None Reported Past Surgical History: Section, Cholecystectomy, Orthopedic Surgery Additional Past Surgical History / Comment(s): Bilateral mastectomies 2005 and 2011, left shoulder arthroscopy,left wrist surgry,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 PORT A CATHX2 CURRENTLY LEFT CHEST, BX OF LYMPH NODES Past Anesthesia/Blood Transfusion Reactions: Motion Sickness, Postoperative Nausea & Vomiting (PONV) Past Psychological History: Depression Smoking Status: Never smoker Past Alcohol Use History: None Reported Additional Past Alcohol Use History / Comment(s): Patient is a lifelong nonsmoker. She denies any illicit drug use, alcohol use. Past Drug Use History: None Reported - Past Family History Father Family Medical History: Cancer, Hypertension, Myocardial Infarction ([place]) Additional Family Medical History / Comment(s): AT AGE 85 from coronary artery disease, hypertension, skin cancer. Mother Family Medical History: Neurologic Disorder Additional Family Medical History / Comment(s): AT AGE 80 from brain ANUERYSM Sister(s) Family Medical History: Cancer Additional Family Medical History / Comment(s): Patient had 2 sisters and one of them is from colon cancer and another from diabetes and multiple sclerosis. She has an aunt with breast cancer. Medications and Allergies Home Medications Medication Instructions Recorded Confirmed Type Aspirin 81 mg PO DAILY 09/10/14 07/17/18 History Calcium Carbonate/Vitamin D3 1 tab PO DAILY 09/10/14 07/17/18 History [Calcium 600-Vit D3 400 Tablet] Insulin Aspart [NovoLOG Flexpen] 5 unit SQ AC-BRKFST 09/10/14 07/17/18 History Insulin Aspart [NovoLOG Flexpen] 8 unit SQ AC-LUNCH 09/10/14 07/17/18 History Insulin Aspart [NovoLOG Flexpen] 8 unit SQ AC-SUPPER 09/10/14 07/17/18 History Levothyroxine Sodium [Synthroid] 100 mcg PO DAILY 09/10/14 07/17/18 History Multivitamins, Thera [Multivitamin 1 tab PO DAILY 09/10/14 07/17/18 History (formulary)] [place]-3S/Dha/Epa/Fish Oil [[place]-3 1 cap PO DAILY 09/10/14 07/17/18 History Fish Oil 1,000 mg Sfgl] Omeprazole [PriLOSEC] 20 mg PO DAILY 09/10/14 07/17/18 History amLODIPine [Norvasc] 10 mg PO DAILY 09/10/14 07/17/18 History Biotin Forte 1 tab PO DAILY 10/24/17 07/17/18 History Canagliflozin [Invokana] 100 mg PO DAILY 10/24/17 07/17/18 History Cholecalciferol [Vitamin D3] 1,000 unit PO DAILY 10/24/17 07/17/18 History Ferrous Gluconate 324 mg PO DAILY 10/24/17 07/17/18 History Insulin Glargine,Hum.rec.anlog 23 unit SQ HS 10/24/17 07/17/18 History [Lantus Solostar] Loperamide [Imodium] 2 mg PO QID PRN 10/24/17 07/17/18 History Naproxen Sodium [Aleve] 440 - 660 mg PO DAILY PRN 10/24/17 07/17/18 History Prochlorperazine [Compazine] 10 mg PO Q6H PRN 10/24/17 07/17/18 History Sertraline [Zoloft] 100 mg PO HS 10/24/17 07/17/18 History metFORMIN HCL [Glucophage] 500 mg PO BID 10/24/17 07/17/18 History Allergies Allergy/AdvReac Type Severity Reaction Status Date / Time adhesive Allergy Itching Verified 07/17/18 09:48 Penicillins Allergy Rash/Hives Verified 07/17/18 09:48 Sulfa (Sulfonamide Allergy Rash/Hives Verified 07/17/18 09:48 Antibiotics) guaifenesin AdvReac Nausea & Verified 07/17/18 09:48 Vomiting Physical Exam Vitals: Vital Signs Temp Pulse Pulse Resp BP BP Pulse Ox 07/17/18 07:36 97.4 F L 92 18 119/73 92 L 07/17/18 06:00 97 16 125/62 94 L 07/17/18 05:00 68 18 134/69 100 07/17/18 04:26 98.4 F 93 16 139/72 94 L 07/17/18 03:47 86 16 126/74 97 07/17/18 03:04 79 21 111/61 97 07/17/18 01:15 95 07/17/18 01:05 96 07/17/18 00:14 104 H 22 159/83 83 L 07/17/18 00:10 98.2 F 111 H 16 138/73 60 L Intake and Output 07/16/18 07/17/18 07/17/18 22:59 06:59 14:59 Output Total 0 Balance 0 Output: Urine 0 Other: Weight 77.111 kg General appearance: no acute distress - EENT Eyes: Reports EOMI, Reports PERRLA ENT: Reports hearing grossly normal, Reports NA/AT, Reports normal oropharynx, Denies thrush, Denies tonsillar exudates Ears: bilateral: normal - Neck Neck: Reports normal ROM, Denies stridor, Denies thyromegaly Carotids: bilateral: upstroke normal Thyroid: bilateral: normal size - Respiratory Respiratory: bilateral: Diminished on the right, negative: diminished, dullness , rales, rhonchi, wheezing, prolonged expiration - Cardiovascular Rhythm: regular Heart sounds: normal: S1, S2 Abnormal Heart Sounds: Denies systolic murmur, Denies diastolic murmur, Denies rub, Denies S3 Gallop, Denies S4 Gallop, Denies click - Gastrointestinal General gastrointestinal: Reports normal bowel sounds, Reports soft, Denies tenderness - Neurologic Neurologic: CNII-XII intact - Musculoskeletal Musculoskeletal: Reports gait normal, Reports strength equal bilaterally - Psychiatric Psychiatric: Reports A&O x's 3, Reports appropriate affect, Reports intact judgment & insight Results CBC & Chem 7: 07/17/18 00:40 07/17/18 00:40 Labs: Abnormal Lab Results - Last 24 Hours (Table) 07/17/18 07/17/18 07/17/18 Range/Units 00:40 00:40 00:40 WBC 11.3 H (3.8-10.6) k/uL RDW 19.0 H (11.5-15.5) % Neutrophils # 9.5 H (1.3-7.7) k/uL Lymphocytes # 0.4 L (1.0-4.8) k/uL Monocytes # 1.2 H (0-1.0) k/uL D-Dimer 0.87 H (<0.60) mg/L FEU Sodium 131 L (137-145) mmol/L Chloride 93 L (98-107) mmol/L BUN 24 H (7-17) mg/dL Glucose 141 H (74-99) mg/dL POC Glucose (mg/dL) (75-99) mg/dL AST 54 H (14-36) U/L Lactate Dehydrogenase (313-618) U/L 07/17/18 07/17/18 Range/Units 02:30 07:45 WBC (3.8-10.6) k/uL RDW (11.5-15.5) % Neutrophils # (1.3-7.7) k/uL Lymphocytes # (1.0-4.8) k/uL Monocytes # (0-1.0) k/uL D-Dimer (<0.60) mg/L FEU Sodium (137-145) mmol/L Chloride (98-107) mmol/L BUN (7-17) mg/dL Glucose (74-99) mg/dL POC Glucose (mg/dL) 176 H (75-99) mg/dL AST (14-36) U/L Lactate Dehydrogenase 890 H (313-618) U/L Thrombosis Risk Factor Assmnt - DVT/VTE Prophylaxis DVT/VTE Prophylaxis: Pharmacologic Prophylaxis ordered - Choose All That Apply Other Risk Factors: Yes Each Risk Factor Represents 2 Points: Age 61-74 years, Malignancy Thrombosis Risk Factor Assessment Total Risk Factor Score: 4 Thrombosis Risk Factor Assessment Level: Moderate Risk Assessment and Plan Plan: 1. Acute hypoxic respiratory failure secondary to right-sided probable malignant pleural effusion and tension pneumothorax status post thoracentesis with removal of 2 L of IV fluid. Cytology is pending. Continue Lasix 40 mg orally daily. Cardiology consult appreciated. Pulmonary on consult. Repeat chest x-ray tomorrow. Continue Azactam, Levaquin. 2. Metastatic breast cancer to lung, brain, liver possible bone. Oncology consult appreciated. 3. Hypertension hypertensive cardiovascular disease. Continue Norvasc 10 mg daily 4. Anemia of chronic disease. Continue ferrous sulfate. 5. Diabetes mellitus type 2, insulin requiring. Continue Levemir 22 units at bedtime, NovoLog scheduled and scale. 6. Hypothyroidism. Continue levothyroxine 100 g daily. 7. Gastroesophageal reflux disease and GI prophylaxis. Continue Protonix. 8. Recurrent depression. Continue Zoloft. 9. DVT prophylaxis. Heparin subcu. Patient will be admitted to the hospital for a minimum of 2 night stay. Discharge plan: Most likely return home Impression and plan of care have been directed as dictated by the signing physician. Joanna Anthony nurse practitioner acting as scribe for signing physician.
[2018-07-17 16:44] LABS: Glucose,Whole Blood 144 mg/dL (75-99)
--- NOTE | 2018-07-17 17:03 | P.CNPUL ---
History of Present Illness Consult date: 07/17/18 Reason for consult: dyspnea, pleural effusion, abnormal CXR/CT Chief complaint: Large right-sided pleural effusion History of present illness: This is a 68-year-old white female patient with history of metastatic right breast cancer has just completed 5 rounds of radiation treatment, is in to the emergency department early in the morning on 07/17/2018 with worsening shortness of breath, and significant pain in the right chest. Her dyspnea has been increasing for a period of about a week. The pain in the right side of her rib cage is worse with lying down, and any movement. Patient follows with Dr. French, she had a recent PET scan on 07/01/2018 that showed attest assist to the right chest wall, and increase in the size of the right upper lobe lung mass. He has had multiple lines of therapy since 2012 for her metastatic breast cancer. She was found to have metastasis to the lung, brain, liver and possibly bone. She was to start new line chemotherapy on 07/19/2018, however she end up coming to the emergency department for worsening shortness of breath. In the emergency department chest x-ray was completed which showed a right-sided hydrothorax, extensive infiltrate in the left lung. Heart was she is slightly to the left side. In the right thoracentesis by ER physician early this morning, would removal of 2000 mL of pleural fluid which was sent for analysis and cytology. Follow-up chest x-ray showed significant improvement in aeration of the right hemithorax compared to the prior exam. This morning patient had a CT angios of the chest, which showed evidence of pulmonary embolism, scattered areas of groundglass opacity bilaterally. Consolidation in the right upper lobe with some interval increase in consolidation. There was residual right pleural effusion with associated atelectatic changes. This morning we seeing this patient in consultation in regards to the follow-up on the right hydrothorax. She is breathing easier, but the right rib cage discomfort persists, especially with any movement or deep breathing. She is on 6 L per nasal, her pulse ox is 92%, she is afebrile, hemodynamically stable, she is awake and alert, responding appropriately, her is at the bedside. The fluid cytology is pending, pleural fluid analysis revealed most likely exudative pleural fluid. His labs have been reviewed, diabetes he is 11.3, hemoglobin is 11.6, sodium is 131, potassium is 4.8, chloride is 93, B1 is 24, creatinine 0.52. BNP was within normal limits of 451, troponin was 0.016. Patient was started on empiric antibiotics in the form of Levaquin, she is receiving pain medications for pain control. Review of Systems All systems: negative Constitutional: Denies chills, Denies fever Eyes: denies blurred vision, denies pain Ears, nose, mouth and throat: Denies headache, Denies sore throat Cardiovascular: Denies chest pain, Denies shortness of breath Respiratory: Reports dyspnea, Reports pain on inspiration, Denies cough Gastrointestinal: Denies abdominal pain, Denies diarrhea, Denies nausea, Denies vomiting Genitourinary: Denies dysuria, Denies hematuria Musculoskeletal: Denies myalgias Integumentary: Denies pruritus, Denies rash Neurological: Denies numbness, Denies weakness Psychiatric: Denies anxiety, Denies depression Endocrine: Denies fatigue, Denies weight change Past Medical History Past Medical History: Cancer, Diabetes Mellitus, Eye Disorder, GERD/Reflux, Hyperlipidemia, Hypertension, Osteoarthritis (OA), Thyroid Disorder Additional Past Medical History / Comment(s): Metastatic bilateral breast cancer , depression, cervical spine degenerative disc disease, CURRENTLY ON CHEMOTHERAPY R/T "SPOTS ON LUNGS" Q 3 WEEKS, BEGINNING CATARACTS History of Any Multi-Drug Resistant Organisms: None Reported Past Surgical History: Section, Cholecystectomy, Orthopedic Surgery Additional Past Surgical History / Comment(s): Bilateral mastectomies 2005 and 2011, left shoulder arthroscopy,left wrist surgry,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 PORT A CATHX2 CURRENTLY LEFT CHEST, BX OF LYMPH NODES Past Anesthesia/Blood Transfusion Reactions: Motion Sickness, Postoperative Nausea & Vomiting (PONV) Past Psychological History: Depression Smoking Status: Never smoker Past Alcohol Use History: None Reported Additional Past Alcohol Use History / Comment(s): Patient is a lifelong nonsmoker. She denies any illicit drug use, alcohol use. Past Drug Use History: None Reported - Past Family History Father Family Medical History: Cancer, Hypertension, Myocardial Infarction (NE) Additional Family Medical History / Comment(s): AT AGE 85 from coronary artery disease, hypertension, skin cancer. Mother Family Medical History: Neurologic Disorder Additional Family Medical History / Comment(s): AT AGE 80 from brain ANUERYSM Sister(s) Family Medical History: Cancer Additional Family Medical History / Comment(s): Patient had 2 sisters and one of them is from colon cancer and another from diabetes and multiple sclerosis. She has an aunt with breast cancer. Medications and Allergies Home Medications Medication Instructions Recorded Confirmed Type Aspirin 81 mg PO DAILY 09/10/14 07/17/18 History Calcium Carbonate/Vitamin D3 1 tab PO DAILY 09/10/14 07/17/18 History [Calcium 600-Vit D3 400 Tablet] Insulin Aspart [NovoLOG Flexpen] 5 unit SQ AC-BRKFST 09/10/14 07/17/18 History Insulin Aspart [NovoLOG Flexpen] 8 unit SQ AC-LUNCH 09/10/14 07/17/18 History Insulin Aspart [NovoLOG Flexpen] 8 unit SQ AC-SUPPER 09/10/14 07/17/18 History Levothyroxine Sodium [Synthroid] 100 mcg PO DAILY 09/10/14 07/17/18 History Multivitamins, Thera [Multivitamin 1 tab PO DAILY 09/10/14 07/17/18 History (formulary)] Columbia-3S/Dha/Epa/Fish Oil [[place]-3 1 cap PO DAILY 09/10/14 07/17/18 History Fish Oil 1,000 mg Sfgl] Omeprazole [PriLOSEC] 20 mg PO DAILY 09/10/14 07/17/18 History amLODIPine [Norvasc] 10 mg PO DAILY 09/10/14 07/17/18 History Biotin Forte 1 tab PO DAILY 10/24/17 07/17/18 History Canagliflozin [Invokana] 100 mg PO DAILY 10/24/17 07/17/18 History Cholecalciferol [Vitamin D3] 1,000 unit PO DAILY 10/24/17 07/17/18 History Ferrous Gluconate 324 mg PO DAILY 10/24/17 07/17/18 History Insulin Glargine,Hum.rec.anlog 23 unit SQ HS 10/24/17 07/17/18 History [Lantus Solostar] Loperamide [Imodium] 2 mg PO QID PRN 10/24/17 07/17/18 History Naproxen Sodium [Aleve] 440 - 660 mg PO DAILY PRN 10/24/17 07/17/18 History Prochlorperazine [Compazine] 10 mg PO Q6H PRN 10/24/17 07/17/18 History Sertraline [Zoloft] 100 mg PO HS 10/24/17 07/17/18 History metFORMIN HCL [Glucophage] 500 mg PO BID 10/24/17 07/17/18 History Allergies Allergy/AdvReac Type Severity Reaction Status Date / Time adhesive Allergy Itching Verified 07/17/18 09:48 Penicillins Allergy Rash/Hives Verified 07/17/18 09:48 Sulfa (Sulfonamide Allergy Rash/Hives Verified 07/17/18 09:48 Antibiotics) guaifenesin AdvReac Nausea & Verified 07/17/18 09:48 Vomiting Physical Exam Vitals: Vital Signs Temp Pulse Pulse Resp BP BP Pulse Ox 07/17/18 15:54 97.2 F L 105 H 18 136/73 92 L 07/17/18 12:00 97.3 F L 98 18 122/70 91 L 07/17/18 07:36 97.4 F L 92 18 119/73 92 L 07/17/18 06:00 97 16 125/62 94 L 07/17/18 05:00 68 18 134/69 100 07/17/18 04:26 98.4 F 93 16 139/72 94 L 07/17/18 03:47 86 16 126/74 97 07/17/18 03:04 79 21 111/61 97 07/17/18 01:15 95 07/17/18 01:05 96 07/17/18 00:14 104 H 22 159/83 83 L 07/17/18 00:10 98.2 F 111 H 16 138/73 60 L Intake and Output 07/17/18 07/17/18 07/17/18 06:59 14:59 22:59 Intake Total 240 Output Total 0 400 Balance 240 -400 Intake: Oral 240 Output: Urine 0 400 Other: Weight 77.111 kg GENERAL EXAM: Alert, pleasant, 68-year-old white female comfortable in no apparent distress. He is having mild to moderate mount of right rib age discomfort with deep breathing and coughing. HEAD: Normocephalic/atraumatic. EYES: Normal reaction of pupils, equal size. Conjunctiva pink, sclera white. NOSE: Clear with pink turbinates. THROAT: No erythema or exudates. NECK: No masses, no JVD, no thyroid enlargement, no adenopathy. CHEST: No chest wall deformity. Symmetrical expansion. LUNGS: Equal air entry with bilateral crackles, initially breath sounds at the bases. CVS: Regular rate and rhythm, normal S1 and S2, no gallops, no murmurs, no rubs ABDOMEN: Soft, nontender. No hepatosplenomegaly, normal bowel sounds, no guarding or rigidity. EXTREMITIES: No clubbing, no edema, no cyanosis, 2+ pulses and upper and lower extremities. MUSCULOSKELETAL: Muscle strength and tone normal. SPINE: No scoliosis or deformity SKIN: No rashes CENTRAL NERVOUS SYSTEM: Alert and oriented -3. No focal deficits, tone is normal in all 4 extremities. PSYCHIATRIC: Alert and oriented -3. Appropriate affect. Intact judgment and insight. Results - Laboratory Findings CBC and BMP: 07/17/18 00:40 07/17/18 00:40 PT/INR, D-dimer PT 9.3 sec (9.0-12.0) 07/17/18 00:40 INR 0.9 (<1.2) 07/17/18 00:40 D-Dimer 0.87 mg/L FEU (<0.60) H 07/17/18 00:40 Abnormal lab findings: Abnormal Labs 07/17/18 07/17/18 07/17/18 00:40 00:40 00:40 WBC 11.3 H RDW 19.0 H Neutrophils # 9.5 H Lymphocytes # 0.4 L Monocytes # 1.2 H D-Dimer 0.87 H Sodium 131 L Chloride 93 L BUN 24 H Glucose 141 H POC Glucose (mg/dL) AST 54 H Lactate Dehydrogenase 07/17/18 07/17/18 07/17/18 02:30 07:45 11:10 WBC RDW Neutrophils # Lymphocytes # Monocytes # D-Dimer Sodium Chloride BUN Glucose POC Glucose (mg/dL) 176 H 218 H AST Lactate Dehydrogenase 890 H - Diagnostic Findings Chest x-ray: report reviewed, image reviewed Additional studies: echocardiogram reviewed Assessment and Plan Plan: Assessment: #1. Acute hypoxic rest or a failure secondary to right-sided hydrothorax, possibly malignant, status post right thoracentesis with removal of 2 L of pleural fluid, pleural fluid cytology is pending #2. History of right breast cancer, with metastasis to the lung, brain, liver, and possibly bone, he has completed 5 rounds of radiation treatments, and is due to start chemotherapy #3. History of left breast cancer, in 2004, status post mastectomy, radiation and chemotherapy. #4. Diabetes mellitus #5. Hypertension #6. Hypothyroidism #7. Depression #8. DJD #9. Never smoker Plan: Pleural fluid analysis revealed most likely exudative pleural fluid, cytology is pending. Will repeat chest x-ray next couple of days, patient is breathing has somewhat improved, although her right rib cage pain persists. She has been seen by medical oncology. We'll continue medical treatment, antibiotics. He was discussed with the patient that the total effusion may have been related to radiation, and is presumed malignant, unless proven otherwise. Will await the results of the cytology. We may have to add some steroids for radiation pneumonitis. Intent to follow I performed a history & physical examination of the patient and discussed their management with my nurse practitioner, Fabiola Stern. I reviewed the nurse practitioner's note and agree with the documented findings and plan of care. Lung sounds are crackles bilaterally. The findings and the impression was discussed with the patient. I attest to the documentation by the nurse practitioner. Time with Patient: Greater than 30
[2018-07-17] MEDS: methylPREDNISolone SOD SUCCI 125 MG/2 ML VIAL IV SCH ×2 (17:38→23:12)
[2018-07-17 19:33] LABS: Hemoglobin A1C 7.5 % (4.0-6.0)
[2018-07-17] MEDS: ACETAMINOPHEN TAB 325 MG TAB PO PRN (20:12)
[2018-07-17 20:48] LABS: Glucose,Whole Blood 179 mg/dL (75-99)
[2018-07-17] MEDS: INSULIN DETEMIR 100 UNIT/ML 10 ML VIAL SQ SCH (21:46)
[2018-07-18] MEDS: SODIUM CHLORIDE 0.9% 1,000 ML IV SCH (05:21)
[2018-07-18] MEDS: AZTREONAM 2 GM in SODIUM CHLORIDE 0.9% 100 ML IVPB SCH (05:55)
[2018-07-18] MEDS: methylPREDNISolone SOD SUCCI 125 MG/2 ML VIAL IV SCH ×4 (05:56→22:23)
[2018-07-18] MEDS: LEVOTHYROXINE 100 MCG TAB PO SCH (05:56)
[2018-07-18 06:04] LABS: Glucose,Whole Blood 175 mg/dL (75-99)
[2018-07-18 06:47] LABS: Anisocytosis Slight; HCT 34.2 % (34.0-46.0); HGB 11.2 gm/dL (11.4-16.0); Hypochromasia Moderate; MCH 29.1 pg (25.0-35.0); MCHC 32.6 g/dL (31.0-37.0); MCV 89.3 fL (80.0-100.0); Mean Platelet Volume 6.7; Platelet Count 334 k/uL (150-450); RBC 3.83 m/uL (3.80-5.40); RDW 19.1 % (11.5-15.5); WBC 9.9 k/uL (3.8-10.6)
[2018-07-18] MEDS: traMADol 50 MG TAB PO PRN ×2 (06:59→22:22)
[2018-07-18 07:00] LABS: ALT 24 U/L (9-52); AST 28 U/L (14-36); Albumin 3.1 g/dL (3.5-5.0); Alkaline Phosphatase 96 U/L (38-126); Anion Gap 11 mmol/L; Blood Urea Nitrogen 26 mg/dL (7-17); Calcium 8.9 mg/dL (8.4-10.2); Carbon Dioxide 28 mmol/L (22-30); Chloride 97 mmol/L (98-107); Glucose 176 mg/dL (74-99); Potassium 4.8 mmol/L (3.5-5.1); Sodium 136 mmol/L (137-145); Total Bilirubin 0.4 mg/dL (0.2-1.3); Total Protein 5.8 g/dL (6.3-8.2)
[2018-07-18] MEDS: INSULIN ASPART 100 UNIT/ML 1 ML 10 ML VIAL SQ SCH ×7 (07:00→21:02)
[2018-07-18] MEDS: PANTOPRAZOLE 40 MG TABLET PO SCH (07:01)
[2018-07-18] MEDS: MORPHINE SULFATE 4 MG/ML SYRINGE IV PRN ×2 (08:05→12:09)
[2018-07-18] MEDS ORDERED: FUROSEMIDE 40 MG TAB PO SCH (09:00)
[2018-07-18] MEDS ORDERED: LEVOFLOXACIN 750 MG TAB PO SCH (09:00)
--- NOTE | 2018-07-18 09:12 | XR ---
EXAMINATION TYPE: XR chest 2V DATE OF EXAM: 07/18/2018 COMPARISON: 07/17/2018 TECHNIQUE: PA and lateral views submitted. HISTORY: Shortness of breath FINDINGS: Demonstrated are scattered senescent parenchymal change. Diffuse infiltrates persist throughout both lung godoy. Heart size is stable. Small right-sided effusion noted. Central venous line unchanged in position. Hilar and mediastinal structures are within normal limits. Degenerative changes are seen o f the dorsal spine. IMPRESSION: 1. Bilateral diffuse pleural-parenchymal changes. Differential diagnosis includes heart failure with pulmonary edema versus diffuse pneumonia. Findings are stable.
[2018-07-18] MEDS: FERROUS SULFATE 325 MG TAB PO SCH (09:15)
[2018-07-18] MEDS: INVOKANA 100MG PO SCH (09:15)
[2018-07-18] MEDS: SERTRALINE 100 MG TAB PO SCH (09:15)
[2018-07-18] MEDS: ASPIRIN 81 MG PO SCH (09:15)
[2018-07-18] MEDS: CHOLECALCIFEROL 1,000 UNIT TAB PO SCH (09:15)
[2018-07-18] MEDS: amLODIPine 10 MG TAB PO SCH (09:15)
--- NOTE | 2018-07-18 10:33 | CDI ---
Last Revision, September 2017 Documentation Clarification Form Date: 07/18 From: Raiza Vogt RN Admit Date: 07/17/2018 3:26:00 AM Patient Name: Abbey Mcduffie Visit Number: [id number] ATTENTION: The Clinical Documentation Specialists (CDI) and [facility] Coding Staff appreciate your assistance in clarifying documentation. Please respond to the clarification below the line at the bottom and electronically sign. The CDI & [facility] Coding staff will review the response and follow-up if needed. Please note: Queries are made part of the Legal Health Record. If you have any questions, please contact the author of this message via ITS. Gillian Cervantes MD, Can you please render your opinion on the following documentation? Pt. presented with shortness of breath. Pt. was admitted with Hypoxic respiratory failure secondary to right sided probable malignant pleural effusion History/Risk Factors: breast cancer with mets, DM, GERD, HTN, OA, hyperlipidemia , hypothyroid disorder, chemo, depression Clinical Indicators: VS on admission: T 98.2, P 111, R 16, 138/73, 60% RA BNP: 451 Echocardiogram Results: EF 55-60% Mild pulmonary hypertension Chest X Ray: There is right-sided hydrothorax. There is extensive edema in the left lung and this is new compared to the rib x-rays recently of 2017. RDS is possible. 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 CXR 07/18: Differential diagnosis includes heart failure with pulmonary edema versus diffuse pneumonia. Treatment: monitor labs Lasix IV Heart Healthy diet satellite project site monitor In your professional opinion, can you please clarify the acuity and type of CHF if known? Systolic Heart Failure: Acute Chronic Acute on Chronic Systolic & Diastolic Heart Failure: Acute Chronic Acute on Chronic Heart Failure Unable to Determine Other, please specify unable to determine MANDEEPD
[2018-07-18 12:09] LABS: Glucose,Whole Blood 190 mg/dL (75-99)
--- NOTE | 2018-07-18 12:09 | P.PN ---
Subjective Progress Note Date: 07/18/18 Principal diagnosis: Metastatic Breast Cancer Abbey seen and evaluated today in follow-up. She is breathing better this am, still has not moved bowels. She is passing gas and denies abdominal discomfort. Objective - Vital Signs Vital signs: Vital Signs Temp 98.0 F 07/18/18 07:34 Pulse 98 07/18/18 07:34 Resp 20 07/18/18 07:34 BP 145/85 07/18/18 07:34 Pulse Ox 95 07/18/18 07:35 Intake & Output 07/17/18 07/18/18 07/18/18 18:59 06:59 18:59 Intake Total 480 240 Output Total 400 900 Balance 80 -900 240 Weight 75.6 kg Intake: Oral 480 240 Output: Urine 400 900 - Exam General appearance: alert, in no distress this am HEENT: atraumatic, normocephalic non icteric sclera Respiratory mild increased respiratory distress, wheezes and Crackling at RLL Base have improved Cardiovascular: normal rhythm, tachycardia, Abdominal: soft, distended, BS x4 Extremities: normal without edema or rashing Neurological: cooperative, non-focal alert Skin: warm, dry, intact, normal color. - Labs CBC & Chem 7: 07/18/18 06:31 07/18/18 06:31 Labs: Abnormal Lab Results - Last 24 Hours (Table) 07/17/18 07/17/18 07/17/18 Range/Units 00:40 16:38 20:46 Hgb (11.4-16.0) gm/dL RDW (11.5-15.5) % Sodium (137-145) mmol/L Chloride (98-107) mmol/L BUN (7-17) mg/dL Glucose (74-99) mg/dL POC Glucose (mg/dL) 144 H 179 H (75-99) mg/dL Hemoglobin A1c 7.5 H (4.0-6.0) % Total Protein (6.3-8.2) g/dL Albumin (3.5-5.0) g/dL 07/18/18 07/18/18 07/18/18 Range/Units 06:02 06:31 06:31 Hgb 11.2 L (11.4-16.0) gm/dL RDW 19.1 H (11.5-15.5) % Sodium 136 L (137-145) mmol/L Chloride 97 L (98-107) mmol/L BUN 26 H (7-17) mg/dL Glucose 176 H (74-99) mg/dL POC Glucose (mg/dL) 175 H (75-99) mg/dL Hemoglobin A1c (4.0-6.0) % Total Protein 5.8 L (6.3-8.2) g/dL Albumin 3.1 L (3.5-5.0) g/dL Microbiology - Last 24 Hours (Table) 07/17/18 00:40 Blood Culture - Preliminary Blood No Growth after 24 hours Assessment and Plan Plan: Assessment and Recommendations: 1. Metastatic Breast Cancer - Lung, Brain, Liver, and Possibly Bone - Status POst Multiple Lines of therapy since 2011 - Status POst Recent Radiation to RUL lung mass (completed last Week) - Plan was to begin next line chemotherapy on July 19, 2018 - I will coordinate a follow-up appointment with [employer] early next week and plan for treatment later in week if she is improved and acute issues resolved. 2. Acute Respiratory Failure secondary to metastatic Disease and PLeural Effusions: - Status Post Thoracentesis removal of 2 Liters, still appears to be in distress. - Obtain CTA of chest to ensure no underlying PE 3. Right Sided PLeural Effusion: - Probable Malignant Effusion as was present prior to radiation therapy although could be related to recent radiation - Await Cytology. 4. Constipation: - Add bowel Regimen - Increase Activity and PO Intake .
--- NOTE | 2018-07-18 12:19 | P.PN ---
Subjective Progress Note Date: 07/18/18 This is a pleasant 68-year-old female with history of metastatic breast cancer who presented to the hospital with symptoms of shortness of breath over the past 2 months, progressively getting worse. She was seen in consultation by Dr. French. Patient does have history of [id number] diabetes, hypertension, hypothyroid, and hyperlipidemia. Patient was noted on her initial chest x-ray to have a right-sided hydrothorax, extensive edema in the left lung that is new as compared with prior. Tension hydrothorax. Chest x -ray repeated showed congestive heart failure with pulmonary infiltrates. RDS possible. Right-sided pleural effusion. CTA of the chest was performed which did not reveal any evidence of pulmonary embolism. Findings in the lung could be due to hypersensitivity pneumonitis, underlying mass, metastases. Echocardiogram with Doppler study was performed which revealed a normal ejection fraction, 55-60%. was seen and examined this morning, she states that she slept well last night, but upon wakening did have some discomfort in her right flank and abdominal area. Breathing overall is stable. Objective - Vital Signs Vital signs: Vital Signs Temp 98.0 F 07/18/18 07:34 Pulse 98 07/18/18 07:34 Resp 20 07/18/18 07:34 BP 145/85 07/18/18 07:34 Pulse Ox 95 07/18/18 07:35 Intake & Output 07/17/18 07/18/18 07/18/18 18:59 06:59 18:59 Intake Total 480 240 Output Total 400 900 Balance 80 -900 240 Weight 75.6 kg Intake: Oral 480 240 Output: Urine 400 900 - Exam PHYSICAL EXAMINATION: GENERAL: 68-year-old female in no acute distress at the time of my examination HEENT: Head is atraumatic, normocephalic. Pupils equal, round. Sclera anicteric. Conjunctiva are clear. Mucous membranes of the mouth are moist. Neck is supple. There is no elevated jugular venous pressure. No carotid bruit is heard. HEART EXAMINATION: Heart S1, S2 normal. No murmur or gallop heard. CHEST EXAMINATION: Lungs are clear with diminished air entry to the bases. ABDOMEN: Soft, nontender. Positive right flank discomfort this morning .Bowel sounds are heard. No organomegaly noted. EXTREMITIES: 2+ peripheral pulses with no evidence of peripheral edema and no calf tenderness noted. NEUROLOGIC patient is awake, alert and oriented X3. . - Labs CBC & Chem 7: 07/18/18 06:31 10 06:31 Labs: Abnormal Lab Results - Last 24 Hours (Table) 07/17/18 07/17/18 07/17/18 Range/Units 00:40 16:38 20:46 Hgb (11.4-16.0) gm/dL RDW (11.5-15.5) % Sodium (137-145) mmol/L Chloride (98-107) mmol/L BUN (7-17) mg/dL Glucose (74-99) mg/dL POC Glucose (mg/dL) 144 H 179 H (75-99) mg/dL Hemoglobin A1c 7.5 H (4.0-6.0) % Total Protein (6.3-8.2) g/dL Albumin (3.5-5.0) g/dL 07/18/18 07/18/18 07/18/18 Range/Units 06:02 06:31 06:31 Hgb 11.2 L (11.4-16.0) gm/dL RDW 19.1 H (11.5-15.5) % Sodium 136 L (137-145) mmol/L Chloride 97 L (98-107) mmol/L BUN 26 H (7-17) mg/dL Glucose 176 H (74-99) mg/dL POC Glucose (mg/dL) 175 H (75-99) mg/dL Hemoglobin A1c (4.0-6.0) % Total Protein 5.8 L (6.3-8.2) g/dL Albumin 3.1 L (3.5-5.0) g/dL Microbiology - Last 24 Hours (Table) 07/17/18 00:40 Blood Culture - Preliminary Blood No Growth after 24 hours Assessment and Plan Plan: Assessment and plan #1. Acute hypoxic rest or a failure secondary to right-sided hydrothorax, possibly malignant, status post right thoracentesis with removal of 2 L of pleural fluid, pleural fluid cytology is pending #2. History of right breast cancer, with metastasis to the lung, brain, liver, and possibly bone, he has completed 5 rounds of radiation treatments, and is due to start chemotherapy #3. History of left breast cancer, in 2004, status post mastectomy, radiation and chemotherapy. #4. Diabetes mellitus #5. Hypertension #6. Hypothyroidism #7. Depression #8. DJD #9. Never smoker Plan Echocardiogram with Doppler was performed which revealed a normal left ventricular systolic function. Shortness of breath not related to congestive heart failure, secondary to right-sided hydrothorax and pleural effusion. We will follow this patient along with you now on an as-needed basis only, please don't hesitate to call with any questions. We will make her a follow-up appointment to see Dr. French in the office 45 weeks post discharge. DNP note has been reviewed, I agree with a documented findings and plan of care. Patient was seen and examined.
--- NOTE | 2018-07-18 12:31 | P.PN ---
Subjective Progress Note Date: 07/18/18 This is a 68-year-old female patient of Dr. Montez with a previous medical history significant for hypertension and hypertensive cardiovascular disease, diabetes mellitus type 2, hypothyroidism, history of breast cancer, vitamin B12 deficiency anemia, recurrent depression. Patient was initially diagnosed with infiltrating ductal carcinoma of the right breast back in 2011 after she did receive a treatment for left breast cancer back in 2005 and has been under the care of hematology oncology Dr. French. Patient has undergone a number of treatments for metastatic disease most recently SRS radiation to the brain, Xeloda, status post radiation to the right lung nodule that showed progression and rate she recent PET scan. She is scheduled to start on Taxol and Herceptin on July 19. She is known to have metastatic disease to the lungs and since October of this year to the brain and ribs. She states that in April she was pulling weeds and she develops a significant pain in the right side of her ribs and there is concern that she cracked a rib but the pain got significantly worse and she was not able to walk outside for the past 2 days. She denies any history of heart failure. She denies cough or shortness of breath. No fever or chills. No abdominal bloating. No lower extremity edema. She came into [facility] emergency center for evaluation. She was afebrile, initial pulse ox 60% on room air followed by 83% on a nonrebreather. WBC 11.3, d-dimer 0.87, creatinine 0.5 to, sodium 131. LDH 890. Troponin 0.016. Initial chest x-ray showed right-sided hydrothorax. Extensive edema in the left lung and new compared to rib x-rays recently of June 27. RDS is possible. Tension pneumothorax. She underwent thoracentesis done by the ER physician with removal of 2 L of fluid and this was sent for cytology. Repeat chest x-ray shows no significant improvement of the right hemithorax. Clearing of tension hydrothorax. Congestive heart failure with pulmonary infiltrates. RDS possible. Right pleural effusion. The next x-ray showed diffuse infiltrates persist throughout the both lung [place]. Heart size is stable. Small right-sided effusion noted. Patient was admitted to the selective care unit. CTA of the chest showed no evidence of pulmonary embolism. Findings in the lung could be due in part to hypersensitivity pneumonitis, underlying mass, metastasis. Right pleural effusion was present on prior exam. Echocardiogram reveals EF of 55-60% with mild concentric left hypertrophy, mild mitral regurgitation, mild tricuspid regurgitation, mild pulmonary hypertension. Patient has been continued on IV Lasix. Patient was seen by cardiology. Patient is also been seen and followed by oncology and consult in place for pulmonary medicine. Repeat chest x-ray ordered for tomorrow. Patient states that her chest pain is not improved after thoracentesis. 07/18: Patient is followed by multiple consultants including oncology. Cardiology is following and ruled out heart failure. Pulmonary medicine is following and have added in steroids for possible radiation pneumonitis. Cytology continues to be pending. We have changed her Lasix to 40 mg oral twice daily. She states she is feeling better today and denies shortness of breath. She is on high flow nasal cannula at 8 L. [place] added for pain control. She does have pain in the back in the thoracic right side. Incentive spirometry also added. Repeat chest x-ray for tomorrow. Azactam and Levaquin discontinued as there is no signs of pneumonia. Objective - Vital Signs Vital signs: Vital Signs Temp 98.0 F 07/18/18 07:34 Pulse 98 07/18/18 07:34 Resp 20 07/18/18 07:34 BP 145/85 07/18/18 07:34 Pulse Ox 95 07/18/18 07:35 Intake & Output 07/17/18 07/18/18 07/18/18 18:59 06:59 18:59 Intake Total 480 240 Output Total 400 900 Balance 80 -900 240 Weight 75.6 kg Intake: Oral 480 240 Output: Urine 400 900 - Exam General appearance: no acute distress - EENT Eyes: Reports EOMI, Reports PERRLA ENT: Reports hearing grossly normal, Reports NA/AT, Reports normal oropharynx, Denies thrush, Denies tonsillar exudates Ears: bilateral: normal - Neck Neck: Reports normal ROM, Denies stridor, Denies thyromegaly Carotids: bilateral: upstroke normal Thyroid: bilateral: normal size - Respiratory Respiratory: bilateral: Diminished on the right with crackles, negative: diminished, dullness, rales, rhonchi, wheezing, prolonged expiration - Cardiovascular Rhythm: regular Heart sounds: normal: S1, S2 Abnormal Heart Sounds: Denies systolic murmur, Denies diastolic murmur, Denies rub, Denies S3 Gallop, Denies S4 Gallop, Denies click - Gastrointestinal General gastrointestinal: Reports normal bowel sounds, Reports soft, Denies tenderness - Neurologic Neurologic: CNII-XII intact - Musculoskeletal Musculoskeletal: Reports gait normal, Reports strength equal bilaterally - Psychiatric Psychiatric: Reports A&O x's 3, Reports appropriate affect, Reports intact judgment & insight - Labs CBC & Chem 7: 07/18/18 06:31 07/18/18 06:31 Labs: Abnormal Lab Results - Last 24 Hours (Table) 07/17/18 07/17/18 07/17/18 Range/Units 00:40 11:10 16:38 Hgb (11.4-16.0) gm/dL RDW (11.5-15.5) % Sodium (137-145) mmol/L Chloride (98-107) mmol/L BUN (7-17) mg/dL Glucose (74-99) mg/dL POC Glucose (mg/dL) 218 H 144 H (75-99) mg/dL Hemoglobin A1c 7.5 H (4.0-6.0) % Total Protein (6.3-8.2) g/dL Albumin (3.5-5.0) g/dL 07/17/18 07/18/18 07/18/18 Range/Units 20:46 06:02 06:31 Hgb 11.2 L (11.4-16.0) gm/dL RDW 19.1 H (11.5-15.5) % Sodium (137-145) mmol/L Chloride (98-107) mmol/L BUN (7-17) mg/dL Glucose (74-99) mg/dL POC Glucose (mg/dL) 179 H 175 H (75-99) mg/dL Hemoglobin A1c (4.0-6.0) % Total Protein (6.3-8.2) g/dL Albumin (3.5-5.0) g/dL 07/18/18 Range/Units 06:31 Hgb (11.4-16.0) gm/dL RDW (11.5-15.5) % Sodium 136 L (137-145) mmol/L Chloride 97 L (98-107) mmol/L BUN 26 H (7-17) mg/dL Glucose 176 H (74-99) mg/dL POC Glucose (mg/dL) (75-99) mg/dL Hemoglobin A1c (4.0-6.0) % Total Protein 5.8 L (6.3-8.2) g/dL Albumin 3.1 L (3.5-5.0) g/dL Microbiology - Last 24 Hours (Table) 07/17/18 00:40 Blood Culture - Preliminary Blood No Growth after 24 hours Assessment and Plan Plan: 1. Acute hypoxic respiratory failure secondary to right-sided probable malignant pleural effusion and tension pneumothorax status post thoracentesis with removal of 2 L of IV fluid. Steroids were started by pulmonology for possible radiation pneumonitis. Cytology is pending. Continue Lasix 40 mg orally twice daily. Cardiology consult appreciated. Pulmonary consult appreciated. Repeat chest x-ray tomorrow. Discontinue Azactam, Levaquin. 2. Metastatic breast cancer to lung, brain, liver possible bone. Oncology consult appreciated. 3. Hypertension hypertensive cardiovascular disease. Continue Norvasc 10 mg daily 4. Anemia of chronic disease. Continue ferrous sulfate. 5. Diabetes mellitus type 2, insulin requiring. Continue Levemir 22 units at bedtime, NovoLog scheduled and scale. 6. Hypothyroidism. Continue levothyroxine 100 g daily. 7. Gastroesophageal reflux disease and GI prophylaxis. Continue Protonix. 8. Recurrent depression. Continue Zoloft. 9. DVT prophylaxis. Heparin subcu. Discharge plan: Most likely return home Impression and plan of care have been directed as dictated by the signing physician. Joanna Anthony nurse practitioner acting as scribe for signing physician.
--- NOTE | 2018-07-18 13:37 | P.PN ---
Subjective Progress Note Date: 07/18/18 Principal diagnosis: Acute hypoxic respiratory failure secondary to right-sided hydrothorax, possibly malignant, status post right thoracentesis This is a 68-year-old white female patient with history of metastatic right breast cancer has just completed 5 rounds of radiation treatment, is in to the emergency department early in the morning on 07/17/2018 with worsening shortness of breath, and significant pain in the right chest. Her dyspnea has been increasing for a period of about a week. The pain in the right side of her rib cage is worse with lying down, and any movement. Patient follows with Dr. French, she had a recent PET scan on 07/01/2018 that showed attest assist to the right chest wall, and increase in the size of the right upper lobe lung mass. He has had multiple lines of therapy since 2012 for her metastatic breast cancer. She was found to have metastasis to the lung, brain, liver and possibly bone. She was to start new line chemotherapy on 07/19/2018, however she end up coming to the emergency department for worsening shortness of breath. In the emergency department chest x-ray was completed which showed a right-sided hydrothorax, extensive infiltrate in the left lung. Heart was she is slightly to the left side. In the right thoracentesis by ER physician early this morning, would removal of 2000 mL of pleural fluid which was sent for analysis and cytology. Follow-up chest x-ray showed significant improvement in aeration of the right hemithorax compared to the prior exam. This morning patient had a CT angios of the chest, which showed evidence of pulmonary embolism, scattered areas of groundglass opacity bilaterally. Consolidation in the right upper lobe with some interval increase in consolidation. There was residual right pleural effusion with associated atelectatic changes. This morning we seeing this patient in consultation in regards to the follow-up on the right hydrothorax. She is breathing easier, but the right rib cage discomfort persists, especially with any movement or deep breathing. She is on 6 L per nasal, her pulse ox is 92%, she is afebrile, hemodynamically stable, she is awake and alert, responding appropriately, her is at the bedside. The fluid cytology is pending, pleural fluid analysis revealed most likely exudative pleural fluid. His labs have been reviewed, diabetes he is 11.3, hemoglobin is 11.6, sodium is 131, potassium is 4.8, chloride is 93, B1 is 24, creatinine 0.52. BNP was within normal limits of 451, troponin was 0.016. Patient was started on empiric antibiotics in the form of Levaquin, she is receiving pain medications for pain control. On 07/18/2018 patient seen in follow-up. Denies any shortness of breath, but her right-sided rib cage pain persists. She is compliant with the incentive spirometry she is able to achieve 750 ML on the today. Lung sounds are diminished with some rales. Currently on 12 L per nasal cannula, and her pulse ox is 95%, this can be probably be weaned down. She is afebrile, today's chest x-ray has been reviewed, and showed bilateral diffuse pleural parenchymal changes, residual right-sided pleural effusion, relatively unchanged from the previous chest x-ray on 07/17/2018. Pleural fluid cytology is pending. Objective - Vital Signs Vital signs: Vital Signs Temp 98.0 F 07/18/18 07:34 Pulse 98 07/18/18 07:34 Resp 20 07/18/18 07:34 BP 145/85 07/18/18 07:34 Pulse Ox 95 07/18/18 07:35 Intake & Output 07/17/18 07/18/18 07/18/18 18:59 06:59 18:59 Intake Total 480 240 Output Total 400 900 Balance 80 -900 240 Weight 75.6 kg Intake: Oral 480 240 Output: Urine 400 900 - Exam GENERAL EXAM: Alert, pleasant, 68-year-old white female comfortable in no apparent distress. He is having mild to moderate mount of right rib age discomfort with deep breathing and coughing. HEAD: Normocephalic/atraumatic. EYES: Normal reaction of pupils, equal size. Conjunctiva pink, sclera white. NOSE: Clear with pink turbinates. THROAT: No erythema or exudates. NECK: No masses, no JVD, no thyroid enlargement, no adenopathy. CHEST: No chest wall deformity. Symmetrical expansion. LUNGS: Equal air entry with bilateral crackles, diminished breath sounds at the bases. CVS: Regular rate and rhythm, normal S1 and S2, no gallops, no murmurs, no rubs ABDOMEN: Soft, nontender. No hepatosplenomegaly, normal bowel sounds, no guarding or rigidity. EXTREMITIES: No clubbing, no edema, no cyanosis, 2+ pulses and upper and lower extremities. MUSCULOSKELETAL: Muscle strength and tone normal. SPINE: No scoliosis or deformity SKIN: No rashes CENTRAL NERVOUS SYSTEM: Alert and oriented -3. No focal deficits, tone is normal in all 4 extremities. PSYCHIATRIC: Alert and oriented -3. Appropriate affect. Intact judgment and insight. - Labs CBC & Chem 7: 07/18/18 06:31 07/18/18 06:31 Labs: Abnormal Lab Results - Last 24 Hours (Table) 07/17/18 07/17/18 07/17/18 Range/Units 00:40 16:38 20:46 Hgb (11.4-16.0) gm/dL RDW (11.5-15.5) % Sodium (137-145) mmol/L Chloride (98-107) mmol/L BUN (7-17) mg/dL Glucose (74-99) mg/dL POC Glucose (mg/dL) 144 H 179 H (75-99) mg/dL Hemoglobin A1c 7.5 H (4.0-6.0) % Total Protein (6.3-8.2) g/dL Albumin (3.5-5.0) g/dL 07/18/18 07/18/18 07/18/18 Range/Units 06:02 06:31 06:31 Hgb 11.2 L (11.4-16.0) gm/dL RDW 19.1 H (11.5-15.5) % Sodium 136 L (137-145) mmol/L Chloride 97 L (98-107) mmol/L BUN 26 H (7-17) mg/dL Glucose 176 H (74-99) mg/dL POC Glucose (mg/dL) 175 H (75-99) mg/dL Hemoglobin A1c (4.0-6.0) % Total Protein 5.8 L (6.3-8.2) g/dL Albumin 3.1 L (3.5-5.0) g/dL 07/18/18 Range/Units 11:49 Hgb (11.4-16.0) gm/dL RDW (11.5-15.5) % Sodium (137-145) mmol/L Chloride (98-107) mmol/L BUN (7-17) mg/dL Glucose (74-99) mg/dL POC Glucose (mg/dL) 190 H (75-99) mg/dL Hemoglobin A1c (4.0-6.0) % Total Protein (6.3-8.2) g/dL Albumin (3.5-5.0) g/dL Microbiology - Last 24 Hours (Table) 07/17/18 00:40 Blood Culture - Preliminary Blood No Growth after 24 hours Assessment and Plan Plan: Assessment: #1. Acute hypoxic rest or a failure secondary to right-sided hydrothorax, possibly malignant, status post right thoracentesis with removal of 2 L of pleural fluid, pleural fluid cytology is pending #2. History of right breast cancer, with metastasis to the lung, brain, liver, and possibly bone, he has completed 5 rounds of radiation treatments, and is due to start chemotherapy #3. History of left breast cancer, in 2004, status post mastectomy, radiation and chemotherapy. #4. Diabetes mellitus #5. Hypertension #6. Hypothyroidism #7. Depression #8. DJD #9. Never smoker Plan: Continue current plan of treatment, wean FiO2. Encourage incentive spirometry use. We are awaiting the results of the pleural fluid cytology. Continue the steroids. Today's chest x-ray has been reviewed, there is residual right-sided pleural effusion relatively unchanged from yesterday's chest x-ray. I performed a history & physical examination of the patient and discussed their management with my nurse practitioner, Fabiola Stern. I reviewed the nurse practitioner's note and agree with the documented findings and plan of care. Lung sounds are crackles bilaterally. The findings and the impression was discussed with the patient. I attest to the documentation by the nurse practitioner. Time with Patient: Less than 30
[2018-07-18] MEDS: HYDROcodone/APAP 7.5-325MG 1 EACH TAB PO PRN (15:21)
[2018-07-18] MEDS: FUROSEMIDE 40 MG TAB PO SCH (16:11)
[2018-07-18 17:25] LABS: Glucose,Whole Blood 171 mg/dL (75-99)
[2018-07-18] MEDS: ACETAMINOPHEN TAB 325 MG TAB PO PRN (20:20)
[2018-07-18 20:26] LABS: Glucose,Whole Blood 236 mg/dL (75-99)
[2018-07-18] MEDS: INSULIN DETEMIR 100 UNIT/ML 10 ML VIAL SQ SCH (21:01)
[2018-07-19] MEDS: SODIUM CHLORIDE 0.9% 1,000 ML IV SCH (03:10)
[2018-07-19] MEDS: HYDROcodone/APAP 7.5-325MG 1 EACH TAB PO PRN ×2 (05:10)
[2018-07-19 05:54] LABS: Glucose,Whole Blood 106 mg/dL (75-99)
[2018-07-19] MEDS: LEVOTHYROXINE 100 MCG TAB PO SCH (06:26)
[2018-07-19] MEDS: PANTOPRAZOLE 40 MG TABLET PO SCH (06:26)
[2018-07-19] MEDS: methylPREDNISolone SOD SUCCI 125 MG/2 ML VIAL IV SCH ×3 (06:27→17:42)
[2018-07-19] MEDS: INSULIN ASPART 100 UNIT/ML 1 ML 10 ML VIAL SQ SCH ×7 (06:28→22:00)
[2018-07-19] MEDS: amLODIPine 10 MG TAB PO SCH (07:40)
[2018-07-19] MEDS: ASPIRIN 81 MG PO SCH (07:40)
[2018-07-19] MEDS: INVOKANA 100MG PO SCH (07:40)
[2018-07-19] MEDS: CHOLECALCIFEROL 1,000 UNIT TAB PO SCH (07:41)
[2018-07-19] MEDS: FUROSEMIDE 40 MG TAB PO SCH ×2 (07:41→17:43)
[2018-07-19] MEDS: SERTRALINE 100 MG TAB PO SCH (07:41)
[2018-07-19] MEDS: FERROUS SULFATE 325 MG TAB PO SCH (07:41)
[2018-07-19] MEDS: MORPHINE SULFATE 4 MG/ML SYRINGE IV PRN (07:55)
[2018-07-19 11:34] LABS: Glucose,Whole Blood 202 mg/dL (75-99)
[2018-07-19] MEDS: KETOROLAC 30 MG/ML 1 ML VIAL IVP SCH ×2 (11:43→17:59)
[2018-07-19] MEDS: MORPHINE SULFATE ER 15 MG TABLET PO SCH ×2 (11:43→22:00)
--- NOTE | 2018-07-19 13:26 | P.PN ---
Subjective Progress Note Date: 07/19/18 This is a 68-year-old female patient of Dr. Montez with a previous medical history significant for hypertension and hypertensive cardiovascular disease, diabetes mellitus type 2, hypothyroidism, history of breast cancer, vitamin B12 deficiency anemia, recurrent depression. Patient was initially diagnosed with infiltrating ductal carcinoma of the right breast back in 2011 after she did receive a treatment for left breast cancer back in 2005 and has been under the care of hematology oncology Dr. French. Patient has undergone a number of treatments for metastatic disease most recently SRS radiation to the brain, Xeloda, status post radiation to the right lung nodule that showed progression and rate she recent PET scan. She is scheduled to start on Taxol and Herceptin on July 19. She is known to have metastatic disease to the lungs and since October of this year to the brain and ribs. She states that in April she was pulling weeds and she develops a significant pain in the right side of her ribs and there is concern that she cracked a rib but the pain got significantly worse and she was not able to walk outside for the past 2 days. She denies any history of heart failure. She denies cough or shortness of breath. No fever or chills. No abdominal bloating. No lower extremity edema. She came into [facility] emergency center for evaluation. She was afebrile, initial pulse ox 60% on room air followed by 83% on a nonrebreather. WBC 11.3, d-dimer 0.87, creatinine 0.5 to, sodium 131. LDH 890. Troponin 0.016. Initial chest x-ray showed right-sided hydrothorax. Extensive edema in the left lung and new compared to rib x-rays recently of June 27. RDS is possible. Tension pneumothorax. She underwent thoracentesis done by the ER physician with removal of 2 L of fluid and this was sent for cytology. Repeat chest x-ray shows no significant improvement of the right hemithorax. Clearing of tension hydrothorax. Congestive heart failure with pulmonary infiltrates. RDS possible. Right pleural effusion. The next x-ray showed diffuse infiltrates persist throughout the both lung [place]. Heart size is stable. Small right-sided effusion noted. Patient was admitted to the selective care unit. CTA of the chest showed no evidence of pulmonary embolism. Findings in the lung could be due in part to hypersensitivity pneumonitis, underlying mass, metastasis. Right pleural effusion was present on prior exam. Echocardiogram reveals EF of 55-60% with mild concentric left hypertrophy, mild mitral regurgitation, mild tricuspid regurgitation, mild pulmonary hypertension. Patient has been continued on IV Lasix. Patient was seen by cardiology. Patient is also been seen and followed by oncology and consult in place for pulmonary medicine. Repeat chest x-ray ordered for tomorrow. Patient states that her chest pain is not improved after thoracentesis. 07/18: Patient is followed by multiple consultants including oncology. Cardiology is following and ruled out heart failure. Pulmonary medicine is following and have added in steroids for possible radiation pneumonitis. Cytology continues to be pending. We have changed her Lasix to 40 mg oral twice daily. She states she is feeling better today and denies shortness of breath. She is on high flow nasal cannula at 8 L. [place] added for pain control. She does have pain in the back in the thoracic right side. Incentive spirometry also added. Repeat chest x-ray for tomorrow. Azactam and Levaquin discontinued as there is no signs of pneumonia. 07/19: Yesterday, pain medication was adjusted to increase [place] frequency to every 4 hours at 7.5 mg and tramadol was added. Discussed that now which patient states she has tried in the past but it caused her shortness of breath. She states [place] doesn't really help. She states she did not get any sleep last night due to pain in the thoracic back area. Morphine extended release added and Toradol IV along with [place] to be continued. Repeat chest x-ray ordered. Telemetry discontinued. She is currently on O2 at 7 L in to be weaned down today. Objective - Vital Signs Vital signs: Vital Signs Temp 97.6 F 07/19/18 08:00 Pulse 85 07/19/18 08:00 Resp 18 07/19/18 08:00 BP 130/59 07/19/18 08:00 Pulse Ox 98 07/19/18 08:00 Intake & Output 07/18/18 07/19/18 07/19/18 18:59 06:59 18:59 Intake Total 640 400 Output Total 400 Balance 640 0 Weight 75.7 kg Intake: IV 160 Sodium Chloride 0.9% 1, 160 000 ml @ 20 mls/hr IV . Q24H [facility] Rx#:[id number] Intake, IV Titration 160 Amount Sodium Chloride 0.9% 1, 160 000 ml @ 20 mls/hr IV . Q24H [facility] Rx#:[id number] Oral 480 240 Output: Urine 400 Other: # Voids 2 1 - Exam General appearance: no acute distress - EENT Eyes: Reports EOMI, Reports PERRLA ENT: Reports hearing grossly normal, Reports NA/AT, Reports normal oropharynx, Denies thrush, Denies tonsillar exudates Ears: bilateral: normal - Neck Neck: Reports normal ROM, Denies stridor, Denies thyromegaly Carotids: bilateral: upstroke normal Thyroid: bilateral: normal size - Respiratory Respiratory: bilateral: Diminished on the right with crackles, negative: diminished, dullness, rales, rhonchi, wheezing, prolonged expiration - Cardiovascular Rhythm: regular Heart sounds: normal: S1, S2 Abnormal Heart Sounds: Denies systolic murmur, Denies diastolic murmur, Denies rub, Denies S3 Gallop, Denies S4 Gallop, Denies click - Gastrointestinal General gastrointestinal: Reports normal bowel sounds, Reports soft, Denies tenderness - Neurologic Neurologic: CNII-XII intact - Musculoskeletal Musculoskeletal: Reports gait normal, Reports strength equal bilaterally - Psychiatric Psychiatric: Reports A&O x's 3, Reports appropriate affect, Reports intact judgment & insight - Labs CBC & Chem 7: 07/18/18 06:31 07/18/18 06:31 Labs: Abnormal Lab Results - Last 24 Hours (Table) 07/18/18 07/18/18 07/18/18 Range/Units 06:31 11:49 17:00 POC Glucose (mg/dL) 190 H 171 H (75-99) mg/dL Procalcitonin 0.15 H (0.02-0.09) ng/mL 07/18/18 07/19/18 Range/Units 20:24 05:52 POC Glucose (mg/dL) 236 H 106 H (75-99) mg/dL Procalcitonin (0.02-0.09) ng/mL Microbiology - Last 24 Hours (Table) 07/17/18 00:40 Blood Culture - Preliminary Blood No Growth after 48 hours Assessment and Plan Plan: 1. Acute hypoxic respiratory failure secondary to right-sided probable malignant pleural effusion and tension pneumothorax status post thoracentesis with removal of 2 L of IV fluid. Steroids were started by pulmonology for possible radiation pneumonitis. Cytology is pending. Continue Lasix 40 mg orally twice daily. Cardiology consult appreciated. Pulmonary consult appreciated. Repeat chest x-ray. Discontinue Azactam, Levaquin. 2. Metastatic breast cancer to lung, brain, liver possible bone. Oncology consult appreciated. 3. Hypertension hypertensive cardiovascular disease. Continue Norvasc 10 mg daily 4. Anemia of chronic disease. Continue ferrous sulfate. 5. Diabetes mellitus type 2, insulin requiring. Continue Levemir 22 units at bedtime, NovoLog scheduled and scale. 6. Hypothyroidism. Continue levothyroxine 100 g daily. 7. Gastroesophageal reflux disease and GI prophylaxis. Continue Protonix. 8. Recurrent depression. Continue Zoloft. 9. DVT prophylaxis. Heparin subcu. Discharge plan: Most likely return home Impression and plan of care have been directed as dictated by the signing physician. Joanna Anthony nurse practitioner acting as scribe for signing physician.
--- NOTE | 2018-07-19 14:57 | P.PN ---
Subjective Progress Note Date: 07/19/18 Principal diagnosis: Metastatic Breast Cancer Abbey seen and evaluated today in follow-up. She was up working with therapy and walking to restroom, breathing without great distress. Objective - Vital Signs Vital signs: Vital Signs Temp 97.8 F 07/19/18 11:55 Pulse 81 07/19/18 11:55 Resp 18 07/19/18 12:00 BP 137/67 07/19/18 11:55 Pulse Ox 99 07/19/18 11:55 Intake & Output 07/18/18 07/19/18 07/19/18 18:59 06:59 18:59 Intake Total 640 400 Output Total 400 Balance 640 0 Weight 75.7 kg Intake: IV 160 Sodium Chloride 0.9% 1, 160 000 ml @ 20 mls/hr IV . Q24H [facility] Rx#:[id number] Intake, IV Titration 160 Amount Sodium Chloride 0.9% 1, 160 000 ml @ 20 mls/hr IV . Q24H [facility] Rx#:[id number] Oral 480 240 Output: Urine 400 Other: # Voids 2 1 - Exam General appearance: alert, in no distress this am HEENT: atraumatic, normocephalic non icteric sclera Respiratory mild increased respiratory distress, wheezes and Crackling at [employer] Base have improved Cardiovascular: normal rhythm, tachycardia, Abdominal: soft, distended, BS x4 Extremities: normal without edema or rashing Neurological: cooperative, non-focal alert Skin: warm, dry, intact, normal color. - Labs CBC & Chem 7: 07/18/18 06:31 07/18/18 06:31 Labs: Abnormal Lab Results - Last 24 Hours (Table) 07/18/18 07/18/18 07/18/18 Range/Units 06:31 17:00 20:24 POC Glucose (mg/dL) 171 H 236 H (75-99) mg/dL Procalcitonin 0.15 H (0.02-0.09) ng/mL 07/19/18 07/19/18 Range/Units 05:52 11:22 POC Glucose (mg/dL) 106 H 202 H (75-99) mg/dL Procalcitonin (0.02-0.09) ng/mL Microbiology - Last 24 Hours (Table) 07/17/18 00:40 Blood Culture - Preliminary Blood No Growth after 48 hours Assessment and Plan Plan: Assessment and Recommendations: 1. Metastatic Breast Cancer - Lung, Brain, Liver, and Possibly Bone - Status POst Multiple Lines of therapy since 2011 - Status POst Recent Radiation to RUL lung mass (completed last Week) - Plan was to begin next line chemotherapy on July 19, 2018 - I will coordinate a follow-up appointment with PERFORMANCE CONSULTANT early next week and plan for treatment later in week if she is improved and acute issues resolved. - She has appointment made for Follow-up and treatment next week 829 2. Acute Respiratory Failure secondary to metastatic Disease and PLeural Effusions: - Status Post Thoracentesis removal of 2 Liters, still appears to be in distress. - Reviewed CTA of chest no underlying PE 3. Right Sided PLeural Effusion: - Probable Malignant Effusion as was present prior to radiation therapy although could be related to recent radiation - Await Cytology. 4. Constipation: - Add bowel Regimen - Increase Activity and PO Intake Plan From Oncology: - Follow-up in office for re-assessment and initiation of IV treatment next week as scheduled.
--- NOTE | 2018-07-19 15:12 | P.PN ---
Subjective Progress Note Date: 07/19/18 Principal diagnosis: Acute hypoxic respiratory failure secondary to right-sided hydrothorax, possibly malignant, status post right thoracentesis This is a 68-year-old white female patient with history of metastatic right breast cancer has just completed 5 rounds of radiation treatment, is in to the emergency department early in the morning on 07/17/2018 with worsening shortness of breath, and significant pain in the right chest. Her dyspnea has been increasing for a period of about a week. The pain in the right side of her rib cage is worse with lying down, and any movement. Patient follows with Dr. French, she had a recent PET scan on 07/01/2018 that showed attest assist to the right chest wall, and increase in the size of the right upper lobe lung mass. He has had multiple lines of therapy since 2012 for her metastatic breast cancer. She was found to have metastasis to the lung, brain, liver and possibly bone. She was to start new line chemotherapy on 07/19/2018, however she end up coming to the emergency department for worsening shortness of breath. In the emergency department chest x-ray was completed which showed a right-sided hydrothorax, extensive infiltrate in the left lung. Heart was she is slightly to the left side. In the right thoracentesis by ER physician early this morning, would removal of 2000 mL of pleural fluid which was sent for analysis and cytology. Follow-up chest x-ray showed significant improvement in aeration of the right hemithorax compared to the prior exam. This morning patient had a CT angios of the chest, which showed evidence of pulmonary embolism, scattered areas of groundglass opacity bilaterally. Consolidation in the right upper lobe with some interval increase in consolidation. There was residual right pleural effusion with associated atelectatic changes. This morning we seeing this patient in consultation in regards to the follow-up on the right hydrothorax. She is breathing easier, but the right rib cage discomfort persists, especially with any movement or deep breathing. She is on 6 L per nasal, her pulse ox is 92%, she is afebrile, hemodynamically stable, she is awake and alert, responding appropriately, her is at the bedside. The fluid cytology is pending, pleural fluid analysis revealed most likely exudative pleural fluid. His labs have been reviewed, diabetes he is 11.3, hemoglobin is 11.6, sodium is 131, potassium is 4.8, chloride is 93, B1 is 24, creatinine 0.52. BNP was within normal limits of 451, troponin was 0.016. Patient was started on empiric antibiotics in the form of Levaquin, she is receiving pain medications for pain control. On 07/18/2018 patient seen in follow-up. Denies any shortness of breath, but her right-sided rib cage pain persists. She is compliant with the incentive spirometry she is able to achieve 750 ML on the today. Lung sounds are diminished with some rales. Currently on 12 L per nasal cannula, and her pulse ox is 95%, this can be probably be weaned down. She is afebrile, today's chest x-ray has been reviewed, and showed bilateral diffuse pleural parenchymal changes, residual right-sided pleural effusion, relatively unchanged from the previous chest x-ray on 07/17/2018. Pleural fluid cytology is pending. On 07/19/2018 patient seen in follow-up on selective care unit. Breathing easier today, her FiO2 is down to 5 L per nasal cannula, and the pulse ox right now is 99%, continue to wean down FiO2, she remains afebrile, pleural fluid cytology is pending, right-sided rib cage pain. He is working on her incentive spirometry, yesterday's chest x-ray was noted, and there is residual right- sided pleural effusion, we'll repeat chest x-ray in the morning. Patient remains on IV Solu-Medrol, will continue with the same [id number], will await the results of the pleural fluid cytology. Objective - Vital Signs Vital signs: Vital Signs Temp 97.8 F 07/19/18 11:55 Pulse 81 07/19/18 11:55 Resp 18 07/19/18 12:00 BP 137/67 07/19/18 11:55 Pulse Ox 99 07/19/18 11:55 Intake & Output 07/18/18 07/19/18 07/19/18 18:59 06:59 18:59 Intake Total 640 400 Output Total 400 Balance 640 0 Weight 75.7 kg Intake: IV 160 Sodium Chloride 0.9% 1, 160 000 ml @ 20 mls/hr IV . Q24H [facility] Rx#:[id number] Intake, IV Titration 160 Amount Sodium Chloride 0.9% 1, 160 000 ml @ 20 mls/hr IV . Q24H [facility] Rx#:[id number] Oral 480 240 Output: Urine 400 Other: # Voids 2 1 - Exam GENERAL EXAM: Alert, pleasant, 68-year-old white female comfortable in no apparent distress. He is having mild to moderate mount of right rib age discomfort with deep breathing and coughing. HEAD: Normocephalic/atraumatic. EYES: Normal reaction of pupils, equal size. Conjunctiva pink, sclera white. NOSE: Clear with pink turbinates. THROAT: No erythema or exudates. NECK: No masses, no JVD, no thyroid enlargement, no adenopathy. CHEST: No chest wall deformity. Symmetrical expansion. LUNGS: Equal air entry with bilateral crackles, diminished breath sounds at the bases. CVS: Regular rate and rhythm, normal S1 and S2, no gallops, no murmurs, no rubs ABDOMEN: Soft, nontender. No hepatosplenomegaly, normal bowel sounds, no guarding or rigidity. EXTREMITIES: No clubbing, no edema, no cyanosis, 2+ pulses and upper and lower extremities. MUSCULOSKELETAL: Muscle strength and tone normal. SPINE: No scoliosis or deformity SKIN: No rashes CENTRAL NERVOUS SYSTEM: Alert and oriented -3. No focal deficits, tone is normal in all 4 extremities. PSYCHIATRIC: Alert and oriented -3. Appropriate affect. Intact judgment and insight. - Labs CBC & Chem 7: 07/18/18 06:31 07/18/18 06:31 Labs: Abnormal Lab Results - Last 24 Hours (Table) 07/18/18 07/18/18 07/18/18 Range/Units 06:31 17:00 20:24 POC Glucose (mg/dL) 171 H 236 H (75-99) mg/dL Procalcitonin 0.15 H (0.02-0.09) ng/mL 07/19/18 07/19/18 Range/Units 05:52 11:22 POC Glucose (mg/dL) 106 H 202 H (75-99) mg/dL Procalcitonin (0.02-0.09) ng/mL Microbiology - Last 24 Hours (Table) 07/17/18 00:40 Blood Culture - Preliminary Blood No Growth after 48 hours Assessment and Plan Plan: Assessment: #1. Acute hypoxic rest or a failure secondary to right-sided hydrothorax, possibly malignant, status post right thoracentesis with removal of 2 L of pleural fluid, pleural fluid cytology is pending #2. History of right breast cancer, with metastasis to the lung, brain, liver, and possibly bone, he has completed 5 rounds of radiation treatments, and is due to start chemotherapy #3. History of left breast cancer, in 2004, status post mastectomy, radiation and chemotherapy. #4. Diabetes mellitus #5. Hypertension #6. Hypothyroidism #7. Depression #8. DJD #9. Never smoker Plan: Continue current plan of treatment, continue IV Solu-Medrol, pain control, wean down FiO2, pleural fluid cytology is still pending at this time, we'll repeat another chest x-ray in the morning. I performed a history & physical examination of the patient and discussed their management with my nurse practitioner, Fabiola Stern. I reviewed the nurse practitioner's note and agree with the documented findings and plan of care. Lung sounds are crackles bilaterally. The findings and the impression was discussed with the patient. I attest to the documentation by the nurse practitioner. Time with Patient: Less than 30
[2018-07-19 16:42] LABS: Glucose,Whole Blood 295 mg/dL (75-99)
--- NOTE | 2018-07-19 20:37 | XR ---
EXAMINATION TYPE: XR chest 2V DATE OF EXAM: 07/19/2018 COMPARISON: Yesterday HISTORY: Short of breath TECHNIQUE: Frontal and lateral views of the chest are obtained. FINDINGS: There is blunting of right costophrenic angle. There is right pleural effusion. There is f luid in the right major fissure. There is mild pulmonary congestion. There is 25% wedging of L1 verte bra. IMPRESSION: Congestive heart failure and right pleural effusion. Chest appears very slightly improve d compared to yesterday.
[2018-07-19 21:17] LABS: Glucose,Whole Blood 279 mg/dL (75-99)
[2018-07-19] MEDS: INSULIN DETEMIR 100 UNIT/ML 10 ML VIAL SQ SCH (22:00)
[2018-07-20] MEDS: KETOROLAC 30 MG/ML 1 ML VIAL IVP SCH ×2 (00:17→06:51)
[2018-07-20] MEDS: methylPREDNISolone SOD SUCCI 125 MG/2 ML VIAL IV SCH ×2 (00:20→06:51)
[2018-07-20] MEDS: SODIUM CHLORIDE 0.9% 1,000 ML IV SCH (04:43)
[2018-07-20 04:46] VITALS: PULSE 82
[2018-07-20 06:04] LABS: Glucose,Whole Blood 155 mg/dL (75-99)
[2018-07-20 06:51] LABS: Anisocytosis Slight; HCT 35.2 % (34.0-46.0); HGB 11.4 gm/dL (11.4-16.0); Hypochromasia Slight; MCH 28.3 pg (25.0-35.0); MCHC 32.4 g/dL (31.0-37.0); MCV 87.5 fL (80.0-100.0); Mean Platelet Volume 7.1; Platelet Count 365 k/uL (150-450); RBC 4.02 m/uL (3.80-5.40); RDW 18.8 % (11.5-15.5); WBC 11.7 k/uL (3.8-10.6)
[2018-07-20] MEDS: LEVOTHYROXINE 100 MCG TAB PO SCH (06:51)
[2018-07-20] MEDS: PANTOPRAZOLE 40 MG TABLET PO SCH (06:51)
[2018-07-20] MEDS: INSULIN ASPART 100 UNIT/ML 1 ML 10 ML VIAL SQ SCH ×2 (06:55→06:57)
[2018-07-20 07:20] LABS: Anion Gap 4 mmol/L; Blood Urea Nitrogen 36 mg/dL (7-17); Calcium 8.6 mg/dL (8.4-10.2); Carbon Dioxide 31 mmol/L (22-30); Chloride 99 mmol/L (98-107); Glucose 142 mg/dL (74-99); Sodium 134 mmol/L (137-145)
[2018-07-20 07:42] VITALS: BP 130/64; TEMP 97.1
[2018-07-20] MEDS: CHOLECALCIFEROL 1,000 UNIT TAB PO SCH (09:22)
[2018-07-20] MEDS: ASPIRIN 81 MG PO SCH (09:22)
[2018-07-20] MEDS: amLODIPine 10 MG TAB PO SCH (09:22)
[2018-07-20] MEDS: FUROSEMIDE 40 MG TAB PO SCH (09:22)
[2018-07-20] MEDS: INVOKANA 100MG PO SCH (09:23)
[2018-07-20] MEDS: FERROUS SULFATE 325 MG TAB PO SCH (09:23)
[2018-07-20] MEDS: SERTRALINE 100 MG TAB PO SCH (09:23)
[2018-07-20] MEDS: MORPHINE SULFATE ER 15 MG TABLET PO SCH (09:26)
[2018-07-20 09:27] VITALS: RESP 16
--- NOTE | 2018-07-20 13:28 | P.DS ---
Providers Date of admission: 07/17/18 03:26 Expected date of discharge: 07/20/18 Attending physician: Clover Montez Consults: 07/17/18 03:25 Consult Physician Stat Consulting Provider: Asif Patino Consult Reason/Comments: tension hydrothorax Do you want consulting provider notified?: Already Contacted 07/17/18 03:27 Consult Physician Routine Consulting Provider: Solis Villa Consult Reason/Comments: Patient known to you Do you want consulting provider notified?: Yes 07/17/18 09:19 Consult Physician Routine Consulting Provider: Tae French Consult Reason/Comments: chf Do you want consulting provider notified?: Yes Primary care physician: Clover Montez [facility] Course: This is a 68-year-old female patient of Dr. Montez with a previous medical history significant for hypertension and hypertensive cardiovascular disease, diabetes mellitus type 2, hypothyroidism, history of breast cancer, vitamin B12 deficiency anemia, recurrent depression. Patient was initially diagnosed with infiltrating ductal carcinoma of the right breast back in 2011 after she did receive a treatment for left breast cancer back in 2005 and has been under the care of hematology oncology Dr. French. Patient has undergone a number of treatments for metastatic disease most recently SRS radiation to the brain, Xeloda, status post radiation to the right lung nodule that showed progression and rate she recent PET scan. She is scheduled to start on Taxol and Herceptin on July 19. She is known to have metastatic disease to the lungs and since October of this year to the brain and ribs. She states that in April she was pulling weeds and she develops a significant pain in the right side of her ribs and there is concern that she cracked a rib but the pain got significantly worse and she was not able to walk outside for the past 2 days. She denies any history of heart failure. She denies cough or shortness of breath. No fever or chills. No abdominal bloating. No lower extremity edema. She came into [facility] emergency center for evaluation. She was afebrile, initial pulse ox 60% on room air followed by 83% on a nonrebreather. WBC 11.3, d-dimer 0.87, creatinine 0.5 to, sodium 131. LDH 890. Troponin 0.016. Initial chest x-ray showed right-sided hydrothorax. Extensive edema in the left lung and new compared to rib x-rays recently of June 27. RDS is possible. Tension pneumothorax. She underwent thoracentesis done by the ER physician with removal of 2 L of fluid and this was sent for cytology. Repeat chest x-ray shows no significant improvement of the right hemithorax. Clearing of tension hydrothorax. Congestive heart failure with pulmonary infiltrates. RDS possible. Right pleural effusion. The next x-ray showed diffuse infiltrates persist throughout the both lung godoy. Heart size is stable. Small right-sided effusion noted. Patient was admitted to the selective care unit. CTA of the chest showed no evidence of pulmonary embolism. Findings in the lung could be due in part to hypersensitivity pneumonitis, underlying mass, metastasis. Right pleural effusion was present on prior exam. Echocardiogram reveals EF of 55-60% with mild concentric left hypertrophy, mild mitral regurgitation, mild tricuspid regurgitation, mild pulmonary hypertension. Patient has been continued on IV Lasix. Patient was seen by cardiology. Patient is also been seen and followed by oncology and consult in place for pulmonary medicine. Repeat chest x-ray ordered for tomorrow. Patient states that her chest pain is not improved after thoracentesis. 07/18: Patient is followed by multiple consultants including oncology. Cardiology is following and ruled out heart failure. Pulmonary medicine is following and have added in steroids for possible radiation pneumonitis. Cytology continues to be pending. We have changed her Lasix to 40 mg oral twice daily. She states she is feeling better today and denies shortness of breath. She is on high flow nasal cannula at 8 L. [place] added for pain control. She does have pain in the back in the thoracic right side. Incentive spirometry also added. Repeat chest x-ray for tomorrow. Azactam and Levaquin discontinued as there is no signs of pneumonia. 07/19: Yesterday, pain medication was adjusted to increase [place] frequency to every 4 hours at 7.5 mg and tramadol was added. Discussed that now which patient states she has tried in the past but it caused her shortness of breath. She states [place] doesn't really help. She states she did not get any sleep last night due to pain in the thoracic back area. Morphine extended release added and Toradol IV along with [place] to be continued. Repeat chest x-ray ordered. Telemetry discontinued. She is currently on O2 at 7 L in to be weaned down today. 07/20: Today, patient's pulse ox is 95% on 2 L. She is seen at this time off oxygen completely and pulse ox is 95% on room air. Cytology is positive for malignant cells. Her blood cultures showing no growth after 72 hours. She is currently on Solu-Medrol 60 mg every [address] Wu would like her to continue on oral prednisone at discharge. Ray done yesterday reveals congestive heart failure and right pleural effusion. Chest appears to be slightly improved compared to yesterday. Patient will be discharged home today in stable condition. Patient does understand that she may require additional thoracentesis in the near future. Patient did have improvement of her pain with the MS Contin 15 mg every 12 hours along with [place] between. Patient will be present given prescription for both and she understands she needs to follow- up with Dr. Montez for additional prescription. Opioid started talking form was discussed with the patient, signed and all questions answered. Discharge diagnoses: 1. Acute hypoxic respiratory failure secondary to right-sided malignant pleural effusion and tension pneumothorax status post thoracentesis with removal of 2 L of IV fluid, possible radiation pneumonitis. 2. Metastatic breast cancer to lung, brain, liver possible bone. 3. Hypertension hypertensive cardiovascular disease. 4. Anemia of chronic disease. 5. Diabetes mellitus type 2, insulin requiring. 6. Hypothyroidism. 7. Gastroesophageal reflux disease 8. Recurrent depression. Discharge plan: return home Impression and plan of care have been directed as dictated by the signing physician. Joanna Anthony nurse practitioner acting as scribe for signing physician. Patient Condition at Discharge: Good Plan - Discharge Summary Discharge Rx Participant: No New Discharge Prescriptions: New Acetaminophen Tab [Tylenol] 650 mg PO Q6HR PRN tab PRN Reason: Mild Pain Or Fever > 100.5 Furosemide [Lasix] 20 mg PO BID #60 tab HYDROcodone/APAP 7.5-325MG [[place] 7.5-325] 1 each PO Q4H PRN #18 tab PRN Reason: Pain Morphine Sulfate ER [Ms Contin] 15 mg PO Q12HR #6 tablet predniSONE 0 mg PO DIRECTED #40 tab Continue amLODIPine [Norvasc] 10 mg PO DAILY Omeprazole [PriLOSEC] 20 mg PO DAILY Multivitamins, Thera [Multivitamin (formulary)] 1 tab PO DAILY [place]-3S/Dha/Epa/Fish Oil [[place]-3 Fish Oil 1,000 mg Sfgl] 1 cap PO DAILY Levothyroxine Sodium [Synthroid] 100 mcg PO DAILY Insulin Aspart [NovoLOG Flexpen] 8 unit SQ AC-SUPPER Insulin Aspart [NovoLOG Flexpen] 8 unit SQ AC-LUNCH Insulin Aspart [NovoLOG Flexpen] 5 unit SQ AC-BRKFST Calcium Carbonate/Vitamin D3 [Calcium 600-Vit D3 400 Tablet] 1 tab PO DAILY Aspirin 81 mg PO DAILY Sertraline [Zoloft] 100 mg PO HS Cholecalciferol [Vitamin D3] 1,000 unit PO DAILY metFORMIN HCL [Glucophage] 500 mg PO BID Prochlorperazine [Compazine] 10 mg PO Q6H PRN PRN Reason: Nausea Naproxen Sodium [Aleve] 440 - 660 mg PO DAILY PRN PRN Reason: Pain Loperamide [Imodium] 2 mg PO QID PRN PRN Reason: Diarrhea Insulin Glargine,Hum.rec.anlog [Lantus Solostar] 23 unit SQ HS Ferrous Gluconate 324 mg PO DAILY Canagliflozin [Invokana] 100 mg PO DAILY Biotin Forte 1 tab PO DAILY Discharge Medication List Aspirin 81 mg PO DAILY 09/10/14 [History] Calcium Carbonate/Vitamin D3 [Calcium 600-Vit D3 400 Tablet] 1 tab PO DAILY [History] Insulin Aspart [NovoLOG Flexpen] 5 unit SQ AC-BRKFST 09/10/14 [History] Insulin Aspart [NovoLOG Flexpen] 8 unit SQ AC-LUNCH 09/10/14 [History] Insulin Aspart [NovoLOG Flexpen] 8 unit SQ AC-SUPPER 09/10/14 [History] Levothyroxine Sodium [Synthroid] 100 mcg PO DAILY 09/10/14 [History] Multivitamins, Thera [Multivitamin (formulary)] 1 tab PO DAILY 09/10/14 [History ] [place]-3S/Dha/Epa/Fish Oil [[place]-3 Fish Oil 1,000 mg Sfgl] 1 cap PO DAILY [History] Omeprazole [PriLOSEC] 20 mg PO DAILY 09/10/14 [History] amLODIPine [Norvasc] 10 mg PO DAILY 09/10/14 [History] Biotin Forte 1 tab PO DAILY 10/24/17 [History] Canagliflozin [Invokana] 100 mg PO DAILY 10/24/17 [History] Cholecalciferol [Vitamin D3] 1,000 unit PO DAILY 10/24/17 [History] Ferrous Gluconate 324 mg PO DAILY 10/24/17 [History] Insulin Glargine,Hum.rec.anlog [Lantus Solostar] 23 unit SQ HS 10/24/17 [History ] Loperamide [Imodium] 2 mg PO QID PRN 10/24/17 [History] Naproxen Sodium [Aleve] 440 - 660 mg PO DAILY PRN 10/24/17 [History] Prochlorperazine [Compazine] 10 mg PO Q6H PRN 10/24/17 [History] Sertraline [Zoloft] 100 mg PO HS 10/24/17 [History] metFORMIN HCL [Glucophage] 500 mg PO BID 10/24/17 [History] Acetaminophen Tab [Tylenol] 650 mg PO Q6HR PRN tab 07/20/18 [Rx] Furosemide [Lasix] 20 mg PO BID #60 tab 07/20/18 [Rx] HYDROcodone/APAP 7.5-325MG [[place] 7.5-325] 1 each PO Q4H PRN #18 tab 07/20/18 [ Rx] Morphine Sulfate ER [Ms Contin] 15 mg PO Q12HR #6 tablet 07/20/18 [Rx] predniSONE 0 mg PO DIRECTED #40 tab 07/20/18 [Rx] Follow up Appointment(s)/Referral(s): Abraham Gonzales MD [STAFF PHYSICIAN] - 08/11/18 1:45 pm (Tuesday) Clover Montez MD [Primary Care Provider] - 07/28/18 12:45 pm (Tuesday) Kennedi Calloway ANPBC [Nurse Practitioner] - 07/27/18 8:30 am () Discharge Disposition: HOME SELF-CARE
== END 2018-07-20 11:43 | disposition home or self-care (01) | DRG 180 ==
LOC: EC 00:08 → 6SEL 03:26
PROVIDERS: ADMIT Internal Medicine; ATTEND Internal Medicine
PROC: 0W993ZZ Drainage of Right Pleural Cavity, Percutaneous Approach (ICD-10-PCS; principal; 2018-07-17)
DX: C78.00 Secondary malignant neoplasm of unspecified lung (principal); J93.0 Spontaneous tension pneumothorax; J96.01 Acute respiratory failure with hypoxia; C79.31 Secondary malignant neoplasm of brain; J91.0 Malignant pleural effusion; F33.9 Major depressive disorder, recurrent, unspecified; J94.8 Other specified pleural conditions; J70.0 Acute pulmonary manifestations due to radiation; C50.919 Malignant neoplasm of unspecified site of unspecified female breast; D63.8 Anemia in other chronic diseases classified elsewhere; E03.9 Hypothyroidism, unspecified; E11.9 Type 2 diabetes mellitus without complications; E78.5 Hyperlipidemia, unspecified; I08.1 Rheumatic disorders of both mitral and tricuspid valves; I11.0 Hypertensive heart disease with heart failure; I27.20 Pulmonary hypertension, unspecified; I50.9 Heart failure, unspecified; K21.9 Gastro-esophageal reflux disease without esophagitis; M19.90 Unspecified osteoarthritis, unspecified site; Z79.4 Long term (current) use of insulin; Z79.82 Long term (current) use of aspirin; Z79.899 Other long term (current) drug therapy; Z80.0 Family history of malignant neoplasm of digestive organs; Z80.3 Family history of malignant neoplasm of breast; Z80.8 Family history of malignant neoplasm of other organs or systems; Z82.0 Family history of epilepsy and other diseases of the nervous system; Z82.49 Family history of ischemic heart disease and other diseases of the circulatory system; Z83.3 Family history of diabetes mellitus; Z85.3 Personal history of malignant neoplasm of breast; Z90.13 Acquired absence of bilateral breasts and nipples; Z92.3 Personal history of irradiation; Z98.82 Breast implant status; W88.1XXA Exposure to radioactive isotopes, initial encounter
CPT/HCPCS: 32554; 36415; 71045; 71046; 71275; 80048; 80053; 82550; 82553; 83036; 83615; 83880; 84145; 84157; 84484; 85025; 85027; 85379; 85610; 85730; 87040; 88108; 88305; 88341; 88342; 89050; 93005; 93306; 94640; 94660; 94760; 96365; 96367; 96375; 99291

== ENCOUNTER → 2018-07-28 | Outpatient (CLI) | payer MEDICARE ==
--- NOTE | 2018-07-28 12:32 | XR ---
EXAMINATION TYPE: XR chest 2V DATE OF EXAM: 07/28/2018 COMPARISON: 07/19/2018 INDICATION: Increase in tracer breath, history of breast cancer TECHNIQUE: Frontal and lateral views of the chest are obtained. FINDINGS: The appearance of the left heart is stable. Right heart is obscured by pleural fluid. There is a moderate size pleural effusion slightly increased from prior exam. Some increasing opacity in the right apex and right upper lobe is present. Port is present on the left with the tip in the superior vena cava region. Some mild compressive atel ectasis is likely adjacent to the pleural effusion. IMPRESSION: 1. Increasing moderate size right pleural effusion with increasing density right upper lobe and right apex may be some additional fluid.
== END | disposition home or self-care (01) ==
LOC: RADXRMAIN 12:09
PROVIDERS: ATTEND Nurse Practitioner Adult Health
DX: J90 Pleural effusion, not elsewhere classified (principal); C50.611 Malignant neoplasm of axillary tail of right female breast; C50.911 Malignant neoplasm of unspecified site of right female breast; C50.912 Malignant neoplasm of unspecified site of left female breast; L03.119 Cellulitis of unspecified part of limb
CPT/HCPCS: 71046

== ENCOUNTER 2018-08-14 13:12 | Day surgery (SDC) | payer MEDICARE ==
[2018-08-14 10:38] VITALS: TEMP 98.4
[2018-08-14 10:52] LABS: Mean Platelet Volume 6.7; Platelet Count 516 k/uL (150-450)
[2018-08-14 10:57] LABS: INR 0.9 (<1.2); Prothrombin Time 9.3 sec (9.0-12.0)
[2018-08-14 11:26] VITALS: PULSE 96
--- NOTE | 2018-08-14 11:43 | US ---
EXAMINATION TYPE: US thoracentesis DATE OF EXAM: 08/14/2018 COMPARISON: Chest x-ray 07/28/2018 HISTORY: Pleural effusion. FINDINGS: Maximal barrier technique was utilized. The skin overlying a suitable pocket of fluid was localized and the overlying skin prepped and draped. Lidocaine was used for local anesthesia. Ultras ound was used with sterile technique. A 5 Turkish catheter over guide needle was advanced into the pl eural fluid collection using ultrasound guidance and the catheter advanced, needle removed. Approxim ately 1.5 liter(s) of serous fluid was removed. Catheter was withdrawn and hemostasis achieved. The re is no immediate complication. The patient discharged in stable condition without complication. IMPRESSION: STATUS POST ULTRASOUND GUIDED THORACENTESIS, POST PROCEDURE CHEST X-RAY PENDING. THIS MD OCEDURE WAS PERFORMED BY THE UNDERSIGNED.
--- NOTE | 2018-08-14 11:55 | XR ---
EXAMINATION TYPE: XR chest 1V DATE OF EXAM: 08/14/2018 HISTORY: post right thoracentesis COMPARISON: 07/28/2018 TECHNIQUE: Single view of the chest is submitted. FINDINGS: Diminution in right-sided pleural effusion. No sizable pneumothorax evident. Persistent right basilar effusion and atelectasis. Underlying infiltrate not excluded. The heart is stable. Hilar and mediastinal structures are within normal limits. Degenerative changes are seen of the dorsal spine. IMPRESSION: 1. Diminution in right-sided pleural effusion. No sizable pneumothorax evident. Persistent right bas ilar effusion and atelectasis. Underlying infiltrate not excluded.
[2018-08-14 12:16] VITALS: BP 144/70; RESP 16
[~2018-08-14 13:12] MED LIST: HYDROcodone/APAP 5-325MG 1 EACH TAB PO STA; HYDROmorphone 1 MG/ML 1 ML SYRINGE IVP PRN; HYDROmorphone 1 MG/ML 1 ML SYRINGE IVP STA
== END 2018-08-14 13:35 | disposition home or self-care (01) ==
LOC: RADPROMAIN 13:12
PROVIDERS: ATTEND Internal Medicine Hematology & Oncology
DX: J90 Pleural effusion, not elsewhere classified (principal)
CPT/HCPCS: 85049; 85610; 96374; 96375; 36415; 71045; 32555; J1170